=== PATIENT | female | born 1970 | race Caucasian/White ===

== ENCOUNTER 2016-06-16 22:15 | Emergency (ER) | payer SELFPAY ==
[~2016-06-16] VITALS: Ht 157.5 cm; Wt 66.0 kg
[~2016-06-16 22:15] MED LIST: ACETTAB3 OR; ALBUTEROL S2.5 MG/.5 IN; AMOXIL500 MG OR; ANTIVERT25 MG OR; ANUSOL-HC2.5 % RE; ANUSOL-HC25 MG RE; ATENOLOL50 MG PO; ATIVAN0.5 MG OR; ATIVAN1 M1 OR; ATIVAN1 MG PO; BACTRIM DS1 TAB PO; BENTYL20 MG OR; BUTALBITAL/ACETAMIN1 PO; CARAFATE1 GM OR; CEPHALEXIN500 MG OR; CIPRO500 MG OR; CIPROFLOXACN500 MG PO; CITALOPRAM10 MG PO; CITALOPRAM20 MG PO; FLEET RE; FLEXERIL OR; FLEXERIL PO; FLEXERIL5 MG PO; GABAPENTIN300 MG PO; GABAPENTIN600 MG PO; HALDOL0.5 MG/TAB PO; HYDROCHLORO25 MG/TAB PO; HYDROCHLOROT12.5 MG PO; HYDROCHLOROT25 MG PO; KLONOPIN0.5 MG OR; LEVAQUIN500 MG PO; LISINOP/HCTZ1 TA1 PO; LISINOPRIL/HYDR1 TA1 PO; LISINOPRIL10 MG PO; LISINOPRIL5 MG OR; LORTAB 10 PO; LORTAB 10-325 M1 TAB PO; LORTAB 5 OR; MEDDOSEPAK OR; MELOXICAM15 MG PO; METOCLOPRAM10 MG OR; MIRTAZAPINE15 MG PO; MOTRIN800 MG OR; NAPROSYN375 MG PO; NAPROSYN500 MG OR; NEXIUM40 M1 PO; NORCO1 TA2 PO; PAXIL10 MG; PAXIL20 MG OR; PAXIL30 MG PO; PERCOCET 5/325M1 TAB PO; PREDNISONE20 MG OR; PREVACID30 M2 OR; REGLAN10 MG OR; RELACOR; TENORMIN25 MG OR; TOPROL XL25 M1 OR; TRAMADOL HCL50 MG PO; TRILEPTAL150 M1 OR; TRILEPTAL150 M1 PO; TRILEPTAL150 MG OR; ULTRAM50 M1 PO; ULTRAM50 MG OR; VISTARIL25 MG PO; WELLBUTRIN150 M1 PO; XANAX1 MG OR; ZITHROMAX250 MG OR
[2016-06-16 22:25] VITALS: BP 137/78
[2016-06-16] MEDS ORDERED: ATENOLOL50 MG PO (22:31)
== END 2016-06-16 23:45 | disposition left against medical advice (07) | DRG 951 ==
LOC: ED 22:15 → LWOBS 23:45
DX: Z91.19 Patient's noncompliance with other medical treatment and regimen (principal)

== ENCOUNTER 2016-06-25 09:12 | Emergency (ER) | payer SELFPAY ==
[~2016-06-25] VITALS: Ht 157.5 cm; Wt 65.0 kg
[2016-06-25] MEDS ORDERED: VALIUM5 MG PO (09:28)
[2016-06-25 10:23] LABS: URINE BILIRUBIN - DIPSTICK NEGATIVE (NEGATIVE); URINE BLOOD DIPSTICK NEGATIVE (NEGATIVE); URINE CLARITY CLEAR; URINE COLOR YELLOW; URINE GLUCOSE - DIPSTICK NEGATIVE (NEGATIVE); URINE KETONE NEGATIVE (NEGATIVE); URINE LEUK ESTERASE NEGATIVE (NEGATIVE); URINE NITRITE - DIPSTICK NEGATIVE (Negative); URINE PROTEIN - DIPSTICK NEGATIVE (NEG-TRACE); URINE SPECIFIC GRAVITY <=1.005; URINE UROBILINOGEN - DIPSTICK 0.2 E.U./dL (0.2)
[2016-06-25 10:27] LABS: HEMATOCRIT 40.5 % (37.0-47.0); HEMOGLOBIN 14.3 g/dl (12.0-16.0); IMMATURE GRANULOCYTES 0.3 % (0.0-1.0); MEAN CELL VOLUME 90.2 fL CALC (80.0-100.0); MEAN CORPUSCULAR HGB 31.8 pG CALC (26.0-32.0); MEAN CORPUSCULAR HGB CONC 35.3 g/L CALC (32.0-36.0); NEUT# 6.49 thou/uL (2.00-7.15); RED BLOOD COUNT 4.49 mill/uL (4.20-5.60); RED CELL DISTRI WIDTH 12.5 % (11.5-15.5)
[2016-06-25 10:46] LABS: ALBUMIN 4.2 g/dL (3.2-5.0); ALKALINE PHOSPHATASE 52 u/l (38-126); AMYLASE 67 u/l (30-110); ANION GAP 11 (6-22 (CALC)); BILIRUBIN, TOTAL 0.5 mg/dL (0.0-1.4); BUN 6 mg/dL (7-17); BUN/CREATININE RATIO 9 (12-20 (CALC)); CALCIUM 9.4 mg/dL (8.4-10.2); CARBON DIOXIDE 26 mmol/l (22-30); CHLORIDE 105 mmol/l (95-108); CREATININE 0.7 mg/dL (0.5-1.0); GFR > 60 ML/MIN (>=60 (CALC)); GFR FOR AFR.AMER. > 60 ML/MIN (>=60 (CALC)); GLUCOSE 96 mg/dL (65-105); LIPASE 27 u/l (23-300); POTASSIUM 3.8 mmol/l (3.5-5.1); SGOT/AST 18 u/l (14-36); SGPT/ALT 33 u/l (9-52); SODIUM 138 mmol/l (137-146); TOTAL PROTEIN 6.9 g/dL (6.3-8.2)
[2016-06-25 10:57] LABS: MYOGLOBIN 21 ng/mL (0 - 62)
[2016-06-25 12:33] VITALS: BP 139/59
== END 2016-06-25 12:41 | disposition home or self-care (01) | DRG 392 ==
LOC: ED 09:12
PROVIDERS: Emergency Medicine
DX: R10.12 Left upper quadrant pain (principal); I10 Essential (primary) hypertension; R19.7 Diarrhea, unspecified; K44.9 Diaphragmatic hernia without obstruction or gangrene; F41.9 Anxiety disorder, unspecified; F17.210 Nicotine dependence, cigarettes, uncomplicated
CPT/HCPCS: Q9967

== ENCOUNTER 2016-07-18 07:11 | Day surgery (SDC) | payer OTHER ==
[~2016-07-18] VITALS: Ht 157.5 cm; Wt 63.0 kg
[~2016-07-18 07:11] MED LIST changes: +VALIUM5 MG PO; +VIIBRYD20 MG PO
[2016-07-18 08:16] VITALS: BP 125/65
== END 2016-07-18 08:42 | disposition home or self-care (01) | DRG 552 ==
LOC: ORM 07:11
PROVIDERS: ATTEND Anesthesiology Pain Medicine
PROC: 3E0T3BZ Introduction of Anesthetic Agent into Peripheral Nerves and Plexi, Percutaneous Approach (ICD-10-PCS; principal; 2016-07-18)
PROC: 3E0T33Z Introduction of Anti-inflammatory into Peripheral Nerves and Plexi, Percutaneous Approach (ICD-10-PCS; 2016-07-18)
PROC: 3E0T3BZ Introduction of Anesthetic Agent into Peripheral Nerves and Plexi, Percutaneous Approach (ICD-10-PCS; 2016-07-18)
PROC: 3E0T33Z Introduction of Anti-inflammatory into Peripheral Nerves and Plexi, Percutaneous Approach (ICD-10-PCS; 2016-07-18)
DX: M54.5 Low back pain (principal)

== ENCOUNTER 2016-07-25 17:13 | Emergency (ER) | payer OTHER ==
[~2016-07-25] VITALS: Ht 157.5 cm; Wt 64.2 kg
[2016-07-25] MEDS ORDERED: LISINOPRIL/HYDR1 TA1 PO (17:27)
[2016-07-25 18:23] VITALS: BP 135/80
== END 2016-07-25 18:35 | disposition home or self-care (01) | DRG 93 ==
LOC: ED 17:13
DX: G89.29 Other chronic pain (principal); M54.2 Cervicalgia; M54.5 Low back pain

== ENCOUNTER 2016-08-29 05:53 | Day surgery (SDC) | payer MEDICARE ==
[~2016-08-29] VITALS: Ht 157.5 cm; Wt 63.5 kg
[~2016-08-29 05:53] MED LIST changes: +PERCOCET1 TA4 PO
[2016-08-29 07:29] VITALS: BP 124/62
== END 2016-08-29 08:00 | disposition home or self-care (01) ==
LOC: ORM 05:53
PROVIDERS: ATTEND Anesthesiology Pain Medicine
PROC: 3E0U33Z Introduction of Anti-inflammatory into Joints, Percutaneous Approach (ICD-10-PCS; principal; 2016-08-29)
PROC: 3E0U3BZ Introduction of Anesthetic Agent into Joints, Percutaneous Approach (ICD-10-PCS; 2016-08-29)
DX: M25.551 Pain in right hip (principal); M76.61 Achilles tendinitis, right leg; M76.31 Iliotibial band syndrome, right leg; Z72.0 Tobacco use

== ENCOUNTER 2016-08-31 06:56 | Day surgery (SDC) | payer MEDICARE ==
[~2016-08-31] VITALS: Ht 157.5 cm; Wt 63.5 kg
[2016-08-31 10:23] VITALS: BP 136/66
== END 2016-08-31 10:30 | disposition home or self-care (01) ==
LOC: ORM 06:56 → ENDO 06:56 → ORM 09:55
PROVIDERS: ATTEND Internal Medicine Gastroenterology
PROC: 0DBG8ZX Excision of Left Large Intestine, Via Natural or Artificial Opening Endoscopic, Diagnostic (ICD-10-PCS; principal; 2016-08-31)
PROC: 0DBF8ZX Excision of Right Large Intestine, Via Natural or Artificial Opening Endoscopic, Diagnostic (ICD-10-PCS; 2016-08-31)
DX: R19.7 Diarrhea, unspecified (principal); K62.5 Hemorrhage of anus and rectum; R10.84 Generalized abdominal pain; K21.9 Gastro-esophageal reflux disease without esophagitis; R63.4 Abnormal weight loss; K64.4 Residual hemorrhoidal skin tags; K64.8 Other hemorrhoids; K57.30 Diverticulosis of large intestine without perforation or abscess without bleeding; K63.5 Polyp of colon; F32.9 Major depressive disorder, single episode, unspecified; I10 Essential (primary) hypertension; M19.90 Unspecified osteoarthritis, unspecified site; Z80.0 Family history of malignant neoplasm of digestive organs; Z86.010 Personal history of colon polyps

== ENCOUNTER 2016-09-10 11:05 | Emergency (ER) | payer MEDICARE ==
[~2016-09-10] VITALS: Ht 157.5 cm; Wt 63.1 kg
[2016-09-10 12:44] VITALS: BP 137/79
== END 2016-09-10 12:44 | disposition home or self-care (01) ==
LOC: ED 11:05
DX: G89.29 Other chronic pain (principal); M54.5 Low back pain; M54.2 Cervicalgia; I10 Essential (primary) hypertension; M25.78 Osteophyte, vertebrae; F41.9 Anxiety disorder, unspecified; F17.210 Nicotine dependence, cigarettes, uncomplicated

== ENCOUNTER 2016-09-12 05:55 | Day surgery (SDC) | payer MEDICARE ==
[~2016-09-12] VITALS: Ht 157.5 cm; Wt 63.0 kg
[2016-09-12 07:31] VITALS: BP 122/76
[2016-09-12] MEDS ORDERED: PERCOCET1 TA4 PO (08:02)
== END 2016-09-12 08:23 | disposition home or self-care (01) ==
LOC: ORM 05:55
PROVIDERS: ATTEND Anesthesiology Pain Medicine
PROC: 3E0U33Z Introduction of Anti-inflammatory into Joints, Percutaneous Approach (ICD-10-PCS; principal; 2016-09-12)
PROC: 3E0U3BZ Introduction of Anesthetic Agent into Joints, Percutaneous Approach (ICD-10-PCS; 2016-09-12)
DX: M25.551 Pain in right hip (principal); M70.61 Trochanteric bursitis, right hip; M76.31 Iliotibial band syndrome, right leg

== ENCOUNTER 2016-09-26 05:53 | Day surgery (SDC) | payer MEDICARE ==
[~2016-09-26] VITALS: Ht 157.5 cm; Wt 62.6 kg
[2016-09-26 07:41] VITALS: BP 141/68
[2016-09-26] MEDS ORDERED: FLEXERIL5 M1 PO (20:31)
[2016-09-26] MEDS ORDERED: HYDROCO/APAP1 T13 PO (20:32)
[2016-09-26] MEDS ORDERED: CIPROFLOXACN500 MG PO (22:10)
== END 2016-09-26 08:05 | disposition home or self-care (01) ==
LOC: ORM 05:53
PROVIDERS: ATTEND Anesthesiology Pain Medicine
PROC: 3E0T33Z Introduction of Anti-inflammatory into Peripheral Nerves and Plexi, Percutaneous Approach (ICD-10-PCS; principal; 2016-09-26)
PROC: 3E0T3BZ Introduction of Anesthetic Agent into Peripheral Nerves and Plexi, Percutaneous Approach (ICD-10-PCS; 2016-09-26)
PROC: 3E0T33Z Introduction of Anti-inflammatory into Peripheral Nerves and Plexi, Percutaneous Approach (ICD-10-PCS; 2016-09-26)
PROC: 3E0T3BZ Introduction of Anesthetic Agent into Peripheral Nerves and Plexi, Percutaneous Approach (ICD-10-PCS; 2016-09-26)
DX: M54.5 Low back pain (principal); M25.551 Pain in right hip

== ENCOUNTER 2016-09-26 20:04 | Emergency (ER) | payer MEDICARE ==
[~2016-09-26] VITALS: Ht 157.5 cm; Wt 60.0 kg
[2016-09-26] MEDS ORDERED: FLEXERIL5 M1 PO (20:31)
[2016-09-26] MEDS ORDERED: HYDROCO/APAP1 T13 PO (20:32)
[2016-09-26 20:50] LABS: HEMATOCRIT 39.1 % (37.0-47.0); HEMOGLOBIN 13.7 g/dl (12.0-16.0); IMMATURE GRANULOCYTES 0.5 % (0.0-1.0); MEAN CELL VOLUME 91.8 fL CALC (80.0-100.0); MEAN CORPUSCULAR HGB 32.2 pG CALC (26.0-32.0); NEUT# 15.26 thou/uL (2.00-7.15); RED BLOOD COUNT 4.26 mill/uL (4.20-5.60)
[2016-09-26 21:08] LABS: ALBUMIN 4.1 g/dL (3.2-5.0); ALKALINE PHOSPHATASE 43 u/l (38-126); ANION GAP 15 (6-22 (CALC)); BILIRUBIN, TOTAL 0.4 mg/dL (0.0-1.4); BUN 11 mg/dL (7-17); BUN/CREATININE RATIO 17 (12-20 (CALC)); CALCIUM 9.7 mg/dL (8.4-10.2); CARBON DIOXIDE 21 mmol/l (22-30); CHLORIDE 106 mmol/l (95-108); CREATININE 0.6 mg/dL (0.5-1.0); GFR > 60 ML/MIN (>=60 (CALC)); GFR FOR AFR.AMER. > 60 ML/MIN (>=60 (CALC)); GLUCOSE 135 mg/dL (65-105); POTASSIUM 4.3 mmol/l (3.5-5.1); SGOT/AST 20 u/l (14-36); SGPT/ALT 37 u/l (9-52); SODIUM 137 mmol/l (137-146); TOTAL PROTEIN 6.4 g/dL (6.3-8.2)
[2016-09-26 21:31] LABS: URINE BILIRUBIN - DIPSTICK NEGATIVE (NEGATIVE); URINE BLOOD DIPSTICK TRACE-LYSED (NEGATIVE); URINE CLARITY CLEAR; URINE COLOR YELLOW; URINE GLUCOSE - DIPSTICK 250 mg/dL (NEGATIVE); URINE KETONE NEGATIVE (NEGATIVE); URINE LEUK ESTERASE NEGATIVE (NEGATIVE); URINE NITRITE - DIPSTICK NEGATIVE (Negative); URINE PROTEIN - DIPSTICK NEGATIVE (NEG-TRACE); URINE SPECIFIC GRAVITY 1.025; URINE UROBILINOGEN - DIPSTICK 0.2 E.U./dL (0.2)
[2016-09-26 21:34] LABS: COCAINE NEGATIVE (NEGATIVE); METHADONE NEGATIVE (NEGATIVE); TETRAHYDROCANNABIONOL NEGATIVE (NEGATIVE)
[2016-09-26 21:35] LABS: BARBITURATES NEGATIVE (NEGATIVE); OXCYCODONE NEGATIVE (NEGATIVE); TRICYLIC ANTIDEPRESSANTS NEGATIVE (NEGATIVE)
[2016-09-26 21:48] LABS: INFLUENZA A NONE DETECTED (NONE DETECT); INFLUENZA B NONE DETECTED (NONE DETECT)
[2016-09-26] MEDS ORDERED: CIPROFLOXACN500 MG PO (22:10)
[2016-09-26 22:16] VITALS: BP 115/58
== END 2016-09-26 22:45 | disposition home or self-care (01) ==
LOC: ED 20:04
PROVIDERS: Emergency Medicine
DX: R51 Headache (principal); F41.9 Anxiety disorder, unspecified; D72.829 Elevated white blood cell count, unspecified; I10 Essential (primary) hypertension; K44.9 Diaphragmatic hernia without obstruction or gangrene; M50.323 Other cervical disc degeneration at C6-C7 level; F17.210 Nicotine dependence, cigarettes, uncomplicated

== ENCOUNTER 2016-10-17 05:50 | Day surgery (SDC) | payer MEDICARE ==
[~2016-10-17] VITALS: Ht 157.5 cm; Wt 63.0 kg
[~2016-10-17 05:50] MED LIST changes: +FLEXERIL5 M1 PO; +HYDROCO/APAP1 T13 PO; +KLONOPIN0.5 M1; +PROZAC20 M1 PO
[2016-10-17 08:59] VITALS: BP 138/62
== END 2016-10-17 08:18 | disposition home or self-care (01) ==
LOC: ORM 05:50
PROVIDERS: ATTEND Anesthesiology Pain Medicine
PROC: 3E0T3TZ Introduction of Destructive Agent into Peripheral Nerves and Plexi, Percutaneous Approach (ICD-10-PCS; principal; 2016-10-17)
DX: M54.5 Low back pain (principal); R20.2 Paresthesia of skin

== ENCOUNTER 2016-10-31 05:55 | Day surgery (SDC) | payer MEDICARE ==
[~2016-10-31] VITALS: Ht 157.5 cm; Wt 63.0 kg
[2016-10-31 10:33] VITALS: BP 168/87
== END 2016-10-31 08:25 | disposition home or self-care (01) ==
LOC: ORM 05:55
PROVIDERS: ATTEND Anesthesiology Pain Medicine
PROC: 3E0T3TZ Introduction of Destructive Agent into Peripheral Nerves and Plexi, Percutaneous Approach (ICD-10-PCS; principal; 2016-10-31)
DX: M54.5 Low back pain (principal); M47.816 Spondylosis without myelopathy or radiculopathy, lumbar region

== ENCOUNTER 2016-11-26 10:11 | Emergency (ER) | payer MEDICARE ==
[~2016-11-26] VITALS: Ht 157.5 cm; Wt 62.0 kg
[~2016-11-26 10:11] MED LIST changes: +DICLOFENAC100 M1 PO
[2016-11-26 10:52] LABS: HEMATOCRIT 37.2 % (37.0-47.0); HEMOGLOBIN 13.2 g/dl (12.0-16.0); IMMATURE GRANULOCYTES 0.3 % (0.0-1.0); MEAN CELL VOLUME 90.5 fL CALC (80.0-100.0); MEAN CORPUSCULAR HGB 32.1 pG CALC (26.0-32.0); MEAN CORPUSCULAR HGB CONC 35.5 g/L CALC (32.0-36.0); NEUT# 4.51 thou/uL (2.00-7.15); RED BLOOD COUNT 4.11 mill/uL (4.20-5.60); RED CELL DISTRI WIDTH 12.5 % (11.5-15.5)
[2016-11-26 11:08] LABS: ALKALINE PHOSPHATASE 47 u/l (38-126); ANION GAP 13 (6-22 (CALC)); BILIRUBIN, TOTAL 0.5 mg/dL (0.0-1.4); BUN 7 mg/dL (7-17); BUN/CREATININE RATIO 11 (12-20 (CALC)); CALCIUM 9.7 mg/dL (8.4-10.2); CARBON DIOXIDE 28 mmol/l (22-30); CHLORIDE 95 mmol/l (95-108); CREATININE 0.7 mg/dL (0.5-1.0); GFR > 60 ML/MIN (>=60 (CALC)); GFR FOR AFR.AMER. > 60 ML/MIN (>=60 (CALC)); GLUCOSE 85 mg/dL (65-105); LIPASE 29 u/l (23-300); POTASSIUM 3.9 mmol/l (3.5-5.1); SGOT/AST 22 u/l (14-36); SGPT/ALT 39 u/l (9-52); SODIUM 132 mmol/l (137-146); TOTAL PROTEIN 6.4 g/dL (6.3-8.2)
[2016-11-26 11:12] LABS: URINE BILIRUBIN - DIPSTICK NEGATIVE (NEGATIVE); URINE BLOOD DIPSTICK NEGATIVE (NEGATIVE); URINE CLARITY CLEAR; URINE COLOR YELLOW; URINE GLUCOSE - DIPSTICK NEGATIVE (NEGATIVE); URINE KETONE NEGATIVE (NEGATIVE); URINE LEUK ESTERASE NEGATIVE (NEGATIVE); URINE NITRITE - DIPSTICK NEGATIVE (Negative); URINE PROTEIN - DIPSTICK NEGATIVE (NEG-TRACE); URINE UROBILINOGEN - DIPSTICK 0.2 E.U./dL (0.2)
[2016-11-26 13:36] VITALS: BP 151/71
== END 2016-11-26 13:47 | disposition home or self-care (01) ==
LOC: ED 10:11
PROVIDERS: Family Medicine
DX: R19.7 Diarrhea, unspecified (principal); I10 Essential (primary) hypertension; F41.9 Anxiety disorder, unspecified; K57.30 Diverticulosis of large intestine without perforation or abscess without bleeding; F17.210 Nicotine dependence, cigarettes, uncomplicated

== ENCOUNTER 2017-02-03 10:35 | Emergency (ER) | payer MEDICARE ==
[~2017-02-03] VITALS: Ht 157.5 cm; Wt 64.0 kg
[~2017-02-03 10:35] MED LIST changes: +DICLOFENAC75 MG PO; +FENTANYL50 MCG/HR TD
[2017-02-03 10:38] VITALS: BP 135/72
[2017-02-03] MEDS ORDERED: AUGMENTIN875TAB PO (11:24)
[2017-02-03] MEDS ORDERED: ZPAK PO (11:24)
== END 2017-02-03 11:53 | disposition home or self-care (01) ==
LOC: ED 10:35
DX: J32.0 Chronic maxillary sinusitis (principal); R05 Cough; R51 Headache; R09.81 Nasal congestion; F17.210 Nicotine dependence, cigarettes, uncomplicated

== ENCOUNTER 2017-05-13 01:51 | Emergency (ER) | payer MEDICARE ==
[~2017-05-13] VITALS: Ht 157.5 cm; Wt 65.6 kg
[~2017-05-13 01:51] MED LIST changes: +AUGMENTIN875TAB PO; +FENTANYL25 MCG/HR TD; +METOPROLOL50 M1 PO; +ZPAK PO
[2017-05-13 03:25] VITALS: BP 138/72
== END 2017-05-13 03:26 | disposition home or self-care (01) ==
LOC: ED 01:51
DX: S39.012A Strain of muscle, fascia and tendon of lower back, initial encounter (principal); I10 Essential (primary) hypertension; F17.210 Nicotine dependence, cigarettes, uncomplicated; X58.XXXA Exposure to other specified factors, initial encounter

== ENCOUNTER 2017-11-07 07:51 | Emergency (ER) | payer MEDICARE ==
[~2017-11-07] VITALS: Ht 160 cm; Wt 70.5 kg
[2017-11-07 08:34] LABS: HEMATOCRIT 37.9 % (37.0-47.0); HEMOGLOBIN 13.3 g/dl (12.0-16.0); IMMATURE GRANULOCYTES 0.5 % (0.0-5.0); MEAN CELL VOLUME 90.2 fL CALC (80.0-100.0); MEAN CORPUSCULAR HGB 31.7 pG CALC (26.0-32.0); MEAN CORPUSCULAR HGB CONC 35.1 g/L CALC (32.0-36.0); NEUT# 13.68 thou/uL (2.00-7.15); RED BLOOD COUNT 4.2 mill/uL (4.20-5.60); RED CELL DISTRI WIDTH 13.3 % (11.5-15.5)
[2017-11-07 08:36] LABS: URINE BILIRUBIN - DIPSTICK NEGATIVE (NEGATIVE); URINE BLOOD DIPSTICK NEGATIVE (NEGATIVE); URINE COLOR YELLOW; URINE GLUCOSE - DIPSTICK NEGATIVE (NEGATIVE); URINE KETONE NEGATIVE (NEGATIVE); URINE LEUK ESTERASE NEGATIVE (NEGATIVE); URINE NITRITE - DIPSTICK NEGATIVE (Negative); URINE PROTEIN - DIPSTICK NEGATIVE (NEG-TRACE); URINE UROBILINOGEN - DIPSTICK 0.2 E.U./dL (0.2)
[2017-11-07 08:37] LABS: URINE CLARITY CLEAR
[2017-11-07 08:49] LABS: ALKALINE PHOSPHATASE 51 u/l (38-126); ANION GAP 12 (6-22 (CALC)); BILIRUBIN, TOTAL 0.4 mg/dL (0.0-1.4); BUN 10 mg/dL (7-17); BUN/CREATININE RATIO 16 (12-20 (CALC)); CARBON DIOXIDE 27 mmol/l (22-30); CHLORIDE 102 mmol/l (95-108); CREATININE 0.6 mg/dL (0.5-1.0); GFR > 60 ML/MIN (>=60 (CALC)); GFR FOR AFR.AMER. > 60 ML/MIN (>=60 (CALC)); POTASSIUM 3.7 mmol/l (3.5-5.1); SGOT/AST 21 u/l (14-36); SGPT/ALT 36 u/l (9-52); SODIUM 138 mmol/l (137-146); TOTAL PROTEIN 6.5 g/dL (6.3-8.2)
[2017-11-07] MEDS ORDERED: ZOFRAN ODT4 MG PO (09:42)
[2017-11-07] MEDS ORDERED: METRONIDAZOL500 MG PO (09:42)
[2017-11-07] MEDS ORDERED: CIPROFLOXACN500 MG PO (09:42)
[2017-11-07 10:07] VITALS: BP 143/75
== END 2017-11-07 10:07 | disposition left against medical advice (07) ==
LOC: ED 07:51
PROVIDERS: Emergency Medicine
DX: R19.7 Diarrhea, unspecified (principal); R10.33 Periumbilical pain; M19.90 Unspecified osteoarthritis, unspecified site; I10 Essential (primary) hypertension; K58.9 Irritable bowel syndrome, unspecified; K57.90 Diverticulosis of intestine, part unspecified, without perforation or abscess without bleeding; K44.9 Diaphragmatic hernia without obstruction or gangrene; F17.210 Nicotine dependence, cigarettes, uncomplicated; Z91.19 Patient's noncompliance with other medical treatment and regimen

== ENCOUNTER → 2017-12-27 | Outpatient (REF) | payer MEDICARE ==
[~2017-12-27] MED LIST changes: +METRONIDAZOL500 MG PO; +ZOFRAN ODT4 MG PO
== END | disposition home or self-care (01) ==
LOC: MRI 10:59
PROVIDERS: ATTEND Orthopaedic Surgery Orthopaedic Surgery of the Spine
DX: M54.5 Low back pain (principal); M54.16 Radiculopathy, lumbar region; Z47.89 Encounter for other orthopedic aftercare

== ENCOUNTER → 2018-05-14 | Outpatient (REF) | payer MEDICARE ==
[2018-05-14 10:20] LABS: HEMATOCRIT 39.4 % (37.0-47.0); HEMOGLOBIN 13.2 g/dl (12.0-16.0); IMMATURE GRANULOCYTES 0.3 % (0.0-5.0); MEAN CORPUSCULAR HGB 32.1 pG CALC (26.0-32.0); MEAN CORPUSCULAR HGB CONC 33.5 g/L CALC (32.0-36.0); NEUT# 5.88 thou/uL (2.00-7.15); RED BLOOD COUNT 4.11 mill/uL (4.20-5.60); RED CELL DISTRI WIDTH 13.5 % (11.5-15.5)
[2018-05-14 10:22] LABS: MEAN CELL VOLUME 95.9 fL CALC (80.0-100.0)
[2018-05-14 11:10] LABS: C-REACTIVE PROTEIN 0.6 mg/dL (0-0.9)
== END | disposition home or self-care (01) ==
LOC: LAB 09:35
PROVIDERS: ATTEND Orthopaedic Surgery Orthopaedic Surgery of the Spine
DX: M06.9 Rheumatoid arthritis, unspecified (principal)

== ENCOUNTER 2018-07-06 20:29 | Emergency (ER) | payer MEDICARE ==
[~2018-07-06] VITALS: Ht 7.6 cm; Wt 65.0 kg
[2018-07-06] MEDS ORDERED: HYDROCHLOROT25 MG PO (20:44)
[2018-07-06] MEDS ORDERED: NORCO1 TA1 PO (20:46)
[2018-07-06 21:23] LABS: URINE BILIRUBIN - DIPSTICK NEGATIVE (NEGATIVE); URINE BLOOD DIPSTICK NEGATIVE (NEGATIVE); URINE COLOR YELLOW; URINE GLUCOSE - DIPSTICK NEGATIVE (NEGATIVE); URINE KETONE NEGATIVE (NEGATIVE); URINE LEUK ESTERASE NEGATIVE (NEGATIVE); URINE NITRITE - DIPSTICK NEGATIVE (Negative); URINE PH 5.5 (4.5-8.0); URINE PROTEIN - DIPSTICK NEGATIVE (NEG-TRACE); URINE SPECIFIC GRAVITY 1.025; URINE UROBILINOGEN - DIPSTICK 0.2 E.U./dL (0.2)
[2018-07-06 21:25] LABS: HEMATOCRIT 39.2 % (37.0-47.0); HEMOGLOBIN 13.3 g/dl (12.0-16.0); IMMATURE GRANULOCYTES 0.2 % (0.0-5.0); MEAN CELL VOLUME 93.6 fL CALC (80.0-100.0); MEAN CORPUSCULAR HGB 31.7 pG CALC (26.0-32.0); MEAN CORPUSCULAR HGB CONC 33.9 g/L CALC (32.0-36.0); NEUT# 4.42 thou/uL (2.00-7.15); RED BLOOD COUNT 4.19 mill/uL (4.20-5.60); RED CELL DISTRI WIDTH 12.6 % (11.5-15.5)
[2018-07-06 21:44] LABS: ALBUMIN 4.1 g/dL (3.2-5.0); ALKALINE PHOSPHATASE 58 u/l (38-126); AMYLASE 52 u/l (30-110); ANION GAP 12 (6-22 (CALC)); BILIRUBIN, TOTAL 0.3 mg/dL (0.0-1.4); BUN 20 mg/dL (7-17); BUN/CREATININE RATIO 30 (12-20 (CALC)); CARBON DIOXIDE 27 mmol/l (22-30); CHLORIDE 102 mmol/l (95-108); CREATININE 0.6 mg/dL (0.5-1.0); GFR > 60 ML/MIN (>=60 (CALC)); GFR FOR AFR.AMER. > 60 ML/MIN (>=60 (CALC)); LIPASE 58 u/l (23-300); POTASSIUM 3.7 mmol/l (3.5-5.1); SGOT/AST 19 u/l (14-36); SODIUM 137 mmol/l (137-146); TOTAL PROTEIN 6.3 g/dL (6.3-8.2)
[2018-07-06] MEDS ORDERED: AMITRIPTYLIN25 MG PO (22:38)
[2018-07-06 22:50] VITALS: BP 148/80
== END 2018-07-06 22:50 | disposition home or self-care (01) ==
LOC: ED 20:29
PROVIDERS: Family Medicine
DX: K58.0 Irritable bowel syndrome with diarrhea (principal); I10 Essential (primary) hypertension; F17.210 Nicotine dependence, cigarettes, uncomplicated

== ENCOUNTER 2018-09-07 13:04 | Emergency (ER) | payer MEDICARE ==
[~2018-09-07] VITALS: Ht 160 cm; Wt 65.0 kg
[~2018-09-07 13:04] MED LIST changes: +AMITRIPTYLIN25 MG PO; +NORCO1 TA1 PO
[2018-09-07 13:33] VITALS: BP 148/75
[2018-09-07] MEDS ORDERED: AMOXICILLIN500 MG PO (13:46)
== END 2018-09-07 14:02 | disposition home or self-care (01) ==
LOC: ED 13:04
PROC: 0HQEXZZ Repair Left Lower Arm Skin, External Approach (ICD-10-PCS; principal; 2018-09-07)
DX: S51.822A Laceration with foreign body of left forearm, initial encounter (principal); I10 Essential (primary) hypertension; F17.200 Nicotine dependence, unspecified, uncomplicated; W45.8XXA Other foreign body or object entering through skin, initial encounter; W22.8XXA Striking against or struck by other objects, initial encounter

== ENCOUNTER 2018-09-26 21:53 | Emergency (ER) | payer MEDICARE ==
[~2018-09-26] VITALS: Ht 160 cm; Wt 62.7 kg
[~2018-09-26 21:53] MED LIST changes: +AMOXICILLIN500 MG PO
[2018-09-26] MEDS ORDERED: DILAUDID4 MG PO (22:22)
[2018-09-26] MEDS ORDERED: GABAPENTIN100 MG PO (22:23)
[2018-09-26] MEDS ORDERED: DULOXETINE HCL30 MG PO (22:24)
[2018-09-26] MEDS ORDERED: NEXIUM40 M1 PO (22:24)
[2018-09-26 22:32] LABS: URINE BILIRUBIN - DIPSTICK NEGATIVE (NEGATIVE); URINE BLOOD DIPSTICK NEGATIVE (NEGATIVE); URINE COLOR YELLOW; URINE GLUCOSE - DIPSTICK NEGATIVE (NEGATIVE); URINE KETONE NEGATIVE (NEGATIVE); URINE LEUK ESTERASE NEGATIVE (NEGATIVE); URINE NITRITE - DIPSTICK NEGATIVE (Negative); URINE PROTEIN - DIPSTICK NEGATIVE (NEG-TRACE); URINE SPECIFIC GRAVITY 1.025; URINE UROBILINOGEN - DIPSTICK 0.2 E.U./dL (0.2)
[2018-09-26 22:36] LABS: COCAINE NEGATIVE (NEGATIVE); TETRAHYDROCANNABIONOL NEGATIVE (NEGATIVE)
[2018-09-26 22:37] LABS: BARBITURATES NEGATIVE (NEGATIVE); METHADONE NEGATIVE (NEGATIVE); OXCYCODONE NEGATIVE (NEGATIVE); TRICYLIC ANTIDEPRESSANTS NEGATIVE (NEGATIVE)
[2018-09-26] MEDS ORDERED: FLEXERIL PO (23:34)
[2018-09-26 23:40] VITALS: BP 144/76
== END 2018-09-26 23:40 | disposition home or self-care (01) ==
LOC: ED 21:53
PROVIDERS: Family Medicine
DX: S00.03XA Contusion of scalp, initial encounter (principal); S30.0XXA Contusion of lower back and pelvis, initial encounter; S33.5XXA Sprain of ligaments of lumbar spine, initial encounter; S20.222A Contusion of left back wall of thorax, initial encounter; I10 Essential (primary) hypertension; F17.200 Nicotine dependence, unspecified, uncomplicated; V80.010A Animal-rider injured by fall from or being thrown from horse in noncollision accident, initial encounter; Y93.52 Activity, horseback riding; Y92.009 Unspecified place in unspecified non-institutional (private) residence as the place of occurrence of the external cause

== ENCOUNTER 2018-10-08 12:36 | Emergency (ER) | payer OTHER, MEDICARE ==
[~2018-10-08] VITALS: Ht 160 cm; Wt 62.7 kg
[~2018-10-08 12:36] MED LIST changes: +DILAUDID4 MG PO; +DULOXETINE HCL30 MG PO; +GABAPENTIN100 MG PO
[2018-10-08 13:56] LABS: URINE BILIRUBIN - DIPSTICK NEGATIVE (NEGATIVE); URINE BLOOD DIPSTICK NEGATIVE (NEGATIVE); URINE CLARITY CLEAR; URINE COLOR YELLOW; URINE GLUCOSE - DIPSTICK NEGATIVE (NEGATIVE); URINE KETONE NEGATIVE (NEGATIVE); URINE LEUK ESTERASE NEGATIVE (Negative); URINE NITRITE - DIPSTICK NEGATIVE (Negative); URINE PH 5.5 (4.5-8.0); URINE PROTEIN - DIPSTICK NEGATIVE (NEG-TRACE); URINE UROBILINOGEN - DIPSTICK 0.2 E.U./dL (0.2)
[2018-10-08] MEDS ORDERED: FLEXERIL PO (14:08)
[2018-10-08] MEDS ORDERED: MEDDOSEPAK PO (14:08)
[2018-10-08] MEDS ORDERED: DULCOLAX10 MG RE (14:11)
[2018-10-08 14:32] VITALS: BP 128/61
== END 2018-10-08 14:32 | disposition home or self-care (01) | DRG 552 ==
LOC: ED 12:36
PROVIDERS: Emergency Medicine
DX: M54.5 Low back pain (principal); G89.29 Other chronic pain; K56.41 Fecal impaction; R10.12 Left upper quadrant pain; M79.604 Pain in right leg; F17.210 Nicotine dependence, cigarettes, uncomplicated; V54.5XXA Driver of pick-up truck or van injured in collision with heavy transport vehicle or bus in traffic accident, initial encounter; Y92.411 Interstate highway as the place of occurrence of the external cause

== ENCOUNTER 2019-01-02 07:20 | Emergency (ER) | payer MEDICARE ==
[~2019-01-02] VITALS: Ht 160 cm; Wt 65.0 kg
[~2019-01-02 07:20] MED LIST changes: +DULCOLAX10 MG RE; +MEDDOSEPAK PO
[2019-01-02] MEDS ORDERED: MORPHINE SUL15 MG PO (07:29)
[2019-01-02 08:07] LABS: HEMATOCRIT 43.6 % (37.0-47.0); HEMOGLOBIN 14.5 g/dl (12.0-16.0); IMMATURE GRANULOCYTES 0.2 % (0.0-5.0); MEAN CELL VOLUME 89.5 fL CALC (80.0-100.0); MEAN CORPUSCULAR HGB 29.8 pG CALC (26.0-32.0); MEAN CORPUSCULAR HGB CONC 33.3 g/L CALC (32.0-36.0); NEUT# 6.12 thou/uL (2.00-7.15); RED BLOOD COUNT 4.87 mill/uL (4.20-5.60); RED CELL DISTRI WIDTH 14.5 % (11.5-15.5)
[2019-01-02 08:22] LABS: ALKALINE PHOSPHATASE 66 u/l (38-126); ANION GAP 10 (6-22 (CALC)); BILIRUBIN, TOTAL 0.3 mg/dL (0.0-1.4); BUN 11 mg/dL (7-17); BUN/CREATININE RATIO 18 (12-20 (CALC)); CARBON DIOXIDE 28 mmol/l (22-30); CHLORIDE 106 mmol/l (95-108); CREATININE 0.6 mg/dL (0.5-1.0); GFR > 60 ML/MIN (>=60 (CALC)); GFR FOR AFR.AMER. > 60 ML/MIN (>=60 (CALC)); LIPASE 82 u/l (23-300); POTASSIUM 3.8 mmol/l (3.5-5.1); SGOT/AST 20 u/l (14-36); SODIUM 140 mmol/l (137-146); TOTAL PROTEIN 6.6 g/dL (6.3-8.2)
[2019-01-02 08:44] LABS: URINE BILIRUBIN - DIPSTICK NEGATIVE (NEGATIVE); URINE BLOOD DIPSTICK NEGATIVE (NEGATIVE); URINE COLOR YELLOW; URINE GLUCOSE - DIPSTICK NEGATIVE (NEGATIVE); URINE KETONE NEGATIVE (NEGATIVE); URINE LEUK ESTERASE NEGATIVE (NEGATIVE); URINE NITRITE - DIPSTICK NEGATIVE (Negative); URINE PROTEIN - DIPSTICK NEGATIVE (NEG-TRACE); URINE UROBILINOGEN - DIPSTICK 0.2 E.U./dL (0.2)
[2019-01-02 08:48] LABS: BARBITURATES NEGATIVE (NEGATIVE); COCAINE NEGATIVE (NEGATIVE); METHADONE NEGATIVE (NEGATIVE); OXCYCODONE NEGATIVE (NEGATIVE); TETRAHYDROCANNABIONOL POSITIVE (NEGATIVE); TRICYLIC ANTIDEPRESSANTS NEGATIVE (NEGATIVE)
[2019-01-02] MEDS ORDERED: CIPROFLOXACN500 MG PO (09:22)
[2019-01-02] MEDS ORDERED: METRONIDAZOL250 MG PO (09:22)
[2019-01-02 10:33] VITALS: BP 145/67
== END 2019-01-02 10:33 | disposition home or self-care (01) ==
LOC: ED 07:20
DX: K57.32 Diverticulitis of large intestine without perforation or abscess without bleeding (principal); I10 Essential (primary) hypertension; F17.210 Nicotine dependence, cigarettes, uncomplicated
CPT/HCPCS: Q9967

== ENCOUNTER 2019-01-12 07:15 | Emergency (ER) | payer MEDICARE ==
[~2019-01-12] VITALS: Ht 160 cm; Wt 70.0 kg
[~2019-01-12 07:15] MED LIST changes: +METRONIDAZOL250 MG PO; +MORPHINE SUL15 MG PO
[2019-01-12 07:50] LABS: HEMATOCRIT 43.9 % (37.0-47.0); HEMOGLOBIN 14.2 g/dl (12.0-16.0); IMMATURE GRANULOCYTES 0.2 % (0.0-5.0); MEAN CELL VOLUME 91.6 fL CALC (80.0-100.0); MEAN CORPUSCULAR HGB 29.6 pG CALC (26.0-32.0); MEAN CORPUSCULAR HGB CONC 32.3 g/L CALC (32.0-36.0); NEUT# 6.58 thou/uL (2.00-7.15); RED BLOOD COUNT 4.79 mill/uL (4.20-5.60); RED CELL DISTRI WIDTH 17.1 % (11.5-15.5)
[2019-01-12 08:38] LABS: ALBUMIN 3.7 g/dL (3.2-5.0); ALKALINE PHOSPHATASE 62 u/l (38-126); ANION GAP 9 (6-22 (CALC)); BILIRUBIN, TOTAL 0.5 mg/dL (0.0-1.4); BUN 10 mg/dL (7-17); BUN/CREATININE RATIO 19 (12-20 (CALC)); CARBON DIOXIDE 26 mmol/l (22-30); CHLORIDE 108 mmol/l (95-108); CREATININE 0.5 mg/dL (0.5-1.0); GFR > 60 ML/MIN (>=60 (CALC)); GFR FOR AFR.AMER. > 60 ML/MIN (>=60 (CALC)); LIPASE 35 u/l (23-300); POTASSIUM 3.8 mmol/l (3.5-5.1); SGOT/AST 23 u/l (14-36); SODIUM 139 mmol/l (137-146); TOTAL PROTEIN 6.2 g/dL (6.3-8.2)
[2019-01-12] MEDS ORDERED: AMOXICILLIN/CL875 MG PO (09:47)
[2019-01-12] MEDS ORDERED: PHENERGAN25 MG/TAB PO (09:47)
[2019-01-12 10:05] LABS: URINE BILIRUBIN - DIPSTICK NEGATIVE (NEGATIVE); URINE BLOOD DIPSTICK NEGATIVE (NEGATIVE); URINE COLOR YELLOW; URINE GLUCOSE - DIPSTICK NEGATIVE (NEGATIVE); URINE KETONE NEGATIVE (NEGATIVE); URINE LEUK ESTERASE NEGATIVE (NEGATIVE); URINE NITRITE - DIPSTICK NEGATIVE (Negative); URINE PROTEIN - DIPSTICK NEGATIVE (NEG-TRACE); URINE SPECIFIC GRAVITY <=1.005; URINE UROBILINOGEN - DIPSTICK 0.2 E.U./dL (0.2)
[2019-01-12 10:19] VITALS: BP 125/65
== END 2019-01-12 10:20 | disposition home or self-care (01) ==
LOC: ED 07:15
PROVIDERS: Family Medicine
DX: K57.32 Diverticulitis of large intestine without perforation or abscess without bleeding (principal); I10 Essential (primary) hypertension; F17.200 Nicotine dependence, unspecified, uncomplicated
CPT/HCPCS: Q9967

== ENCOUNTER 2019-01-14 17:56 | Observation (INO) | payer MEDICARE ==
[~2019-01-14] VITALS: Ht 160 cm; Wt 64.0 kg
[~2019-01-14 17:56] MED LIST changes: +AMOXICILLIN/CL875 MG PO; +PHENERGAN25 MG/TAB PO
--- NOTE | 2019-01-14 18:05 | NUR ---
WHEELCHAIR TO ER ROOM 9, TO BED
[2019-01-14 18:39] LABS: HEMATOCRIT 42.3 % (37.0-47.0); IMMATURE GRANULOCYTES 0.2 % (0.0-5.0); MEAN CELL VOLUME 88.9 fL CALC (80.0-100.0); MEAN CORPUSCULAR HGB 29.4 pG CALC (26.0-32.0); MEAN CORPUSCULAR HGB CONC 33.1 g/L CALC (32.0-36.0); NEUT# 6.41 thou/uL (2.00-7.15); RED BLOOD COUNT 4.76 mill/uL (4.20-5.60); RED CELL DISTRI WIDTH 14.1 % (11.5-15.5)
[2019-01-14 19:01] LABS: ALKALINE PHOSPHATASE 69 u/l (38-126); ANION GAP 12 (6-22 (CALC)); BILIRUBIN, TOTAL 0.6 mg/dL (0.0-1.4); BUN 12 mg/dL (7-17); BUN/CREATININE RATIO 22 (12-20 (CALC)); CARBON DIOXIDE 23 mmol/l (22-30); CHLORIDE 110 mmol/l (95-108); CREATININE 0.6 mg/dL (0.5-1.0); GFR > 60 ML/MIN (>=60 (CALC)); GFR FOR AFR.AMER. > 60 ML/MIN (>=60 (CALC)); LIPASE 73 u/l (23-300); POTASSIUM 3.7 mmol/l (3.5-5.1); SGOT/AST 25 u/l (14-36); SODIUM 141 mmol/l (137-146); TOTAL PROTEIN 6.7 g/dL (6.3-8.2)
--- NOTE | 2019-01-14 19:20 | NUR ---
PT UP TO BR TO VOID. GETTING URINE SAMPLE. ANTIBIOTICS COMPLETED.
--- NOTE | 2019-01-14 19:45 | NUR ---
ATTEMPTED TO CALL REPORT...NURSE WILL CALL BACK.
[2019-01-14 19:54] LABS: URINE BLOOD DIPSTICK NEGATIVE (NEGATIVE); URINE COLOR YELLOW; URINE GLUCOSE - DIPSTICK NEGATIVE (NEGATIVE); URINE KETONE NEGATIVE (NEGATIVE); URINE LEUK ESTERASE NEGATIVE (NEGATIVE); URINE NITRITE - DIPSTICK NEGATIVE (Negative); URINE PROTEIN - DIPSTICK NEGATIVE (NEG-TRACE); URINE SPECIFIC GRAVITY 1.025; URINE UROBILINOGEN - DIPSTICK 0.2 E.U./dL (0.2)
[2019-01-14 19:55] LABS: URINE BILIRUBIN - DIPSTICK NEGATIVE (NEGATIVE)
--- NOTE | 2019-01-14 19:59 | NUR ---
PT RESTING. WATCHING TV. NO PAIN AT THIS TIME.
--- NOTE | 2019-01-14 20:26 | NUR ---
PT NOW C/O PAIN. ORDERS FOR Q 4 HOUR. WILL ADVISE PT. REPORT TO RUPESH
--- NOTE | 2019-01-14 20:40 | NUR ---
REPORT WAS GIVEN. PT C/O PAIN. NOTIFIED AND AN ADDITIONAL DOSE OF MORPHINE ORDERED AND GIVEN. PT TO FLOOR VIA STRETCHER. AMBULATORY TO BED. APOLINAR.
[2019-01-14 20:45] VITALS: BP 141/71
--- NOTE | 2019-01-14 20:45 | NUR ---
ARRIVED TO THE FLOOR VIA STRETCHER ACCOMPANIED BY FERNANDO POLANCO. LMFT IN AT BEDSIDE SETTLED PT. INTO BED. CALL LIGHT IS IN REACH.
--- NOTE | 2019-01-14 21:40 | NUR ---
ADMISSION ASSESSMENT COMPLETED; IV SITE PATENT AND SL, FLUSHED WITH NS AND ORDERED IVF HUNG. PT. REPORTS PAIN IS RESOLVED AT THIS TIME TO LLQ; REVIEWING PT'S HOME MEDS CLARIFIED METOPROLOL AT THIS TIME. PT. REQUESTS SOMETHING TO EAT, WILL CALL MD FOR DIET ORDERS AND TO CLARIFY METOPROLOL. EDUCATED ON POC AND VERBALIZES UNDERSTANDING. DECLINES CHARLI HOSE TO BE APPLIED; ENCOURAGED TO CALL FOR ANY NEEDS. CALL LIGHT IS IN REACH; WILL CONTINUE TO MONITOR.
[2019-01-14] MEDS ORDERED: METOPROLOL TAR100 MG PO (21:46)
--- NOTE | 2019-01-14 23:48 | NUR ---
RESTING IN BED WITH NO DISTRESS NOTED; DENIES NEEDS. SCHED ABT HUNG. CALL LIGHT IS IN REACH.
--- NOTE | 2019-01-15 02:01 | NUR ---
RESTING IN BED ON RIGHT SIDE WITH EYES CLOSED; RESP. EVEN AND UNLABORED. CALL LIGHT IS IN REACH.
[2019-01-15 04:21] VITALS: BP 133/77
--- NOTE | 2019-01-15 04:23 | NUR ---
RESTING IN BED WITH EYES CLOSED; AWAKENED FOR VS; VSS; DENIES NEEDS. CALL LIGHT IS IN REACH.
--- NOTE | 2019-01-15 05:30 | NUR ---
PT. RESTING IN BED WITH NO DISTRESS NOTED; EYES CLOSED; RESP. EVEN AND UNLABORED. SCHED ABT HUNG. CALL LIGHT IS IN REACH. WILL CONTINUE TO MONITOR.
[2019-01-15 07:30] VITALS: BP 143/67
--- NOTE | 2019-01-15 07:30 | NUR ---
PT RESTING IN BED AWAKE. PT IS ALERT AND ORIENTED X3. PT REQUESTING PAIN MEDICATION. PT MEDICATED FOR PAIN PER MAR. SHIFT ASSESSMENT COMPLETED AT THIS TIME. IV PATENT X1. CALL LIGHT IN REACH. WILL CONTINUE TO MONITOR.
[2019-01-15 08:35] VITALS: BP 143/67
--- NOTE | 2019-01-15 10:00 | NUR ---
#20 RFA IV site discontinued, cath intact. No edema , no redness, voices no discomfort.
--- NOTE | 2019-01-15 10:02 | NUR ---
I CALLED THE CONSULTAION ORDERED FOR DR. SEN @10:06 AM. THE CONSULTATION IS FOR DIVERTICULITIS AND I LEFT A VERY DETAILED MESSAGE FOR STACY OSHEA AT [facility].
[2019-01-15] MEDS ORDERED: ERTAPENEM1 GM IV (10:15)
--- NOTE | 2019-01-15 10:45 | NUR ---
DR WHITE AND ISMAEL PRABHAKAR AT BEDSIDE AT THIS TIME
--- NOTE | 2019-01-15 11:30 | NUR ---
Peripheral IV started. IV access obtained with #22 [employer] at Left Wrist with 1 IV stick attempts. Flushes easily with good blood return.
[2019-01-15] MEDS ORDERED: ZOFRAN4 MG/TAB PO (12:07)
--- NOTE | 2019-01-15 12:39 | NUR ---
NOTIFIED IV THERAPY THAT PATIENT STATED 1300 WAS FINE FOR 01/16/19
--- NOTE | 2019-01-15 12:45 | NUR ---
DISCHARGE INSTRUCTION REVIEWED WITH PATIENT. PATIENT VERBALIZED UNDERSTANDING. PT TO BE DISCHARGED WITH IV FOR IV THERAPY TOMORROW.
--- NOTE | 2019-01-15 12:48 | NUR ---
Discharge instructions given. Patient verbalizes understanding of same. Discharged in stable condition via Ambulatory to Home with family. All belongings sent with pt.
== END 2019-01-15 12:48 | disposition home or self-care (01) ==
LOC: ED 17:56 → ED-I 18:51 → ED 18:57 → MS2 18:58
PROVIDERS: ADMIT Internal Medicine; ATTEND Internal Medicine
DX: K57.32 Diverticulitis of large intestine without perforation or abscess without bleeding (principal); I10 Essential (primary) hypertension; F17.200 Nicotine dependence, unspecified, uncomplicated; M19.90 Unspecified osteoarthritis, unspecified site; F32.9 Major depressive disorder, single episode, unspecified; K58.9 Irritable bowel syndrome, unspecified
CPT/HCPCS: J1335

== ENCOUNTER 2019-01-19 09:15 | Emergency (ER) | payer MEDICARE ==
[~2019-01-19] VITALS: Ht 160 cm; Wt 63.6 kg
[~2019-01-19 09:15] MED LIST changes: +ERTAPENEM1 GM IV; +METOPROLOL TAR100 MG PO; +ZOFRAN4 MG/TAB PO
[2019-01-19 09:46] LABS: HEMATOCRIT 41.3 % (37.0-47.0); HEMOGLOBIN 13.8 g/dl (12.0-16.0); IMMATURE GRANULOCYTES 0.3 % (0.0-5.0); MEAN CELL VOLUME 89.4 fL CALC (80.0-100.0); MEAN CORPUSCULAR HGB 29.9 pG CALC (26.0-32.0); MEAN CORPUSCULAR HGB CONC 33.4 g/L CALC (32.0-36.0); NEUT# 5.23 thou/uL (2.00-7.15); RED BLOOD COUNT 4.62 mill/uL (4.20-5.60); RED CELL DISTRI WIDTH 13.8 % (11.5-15.5)
[2019-01-19 10:09] LABS: ALBUMIN 3.9 g/dL (3.2-5.0); ALKALINE PHOSPHATASE 65 u/l (38-126); ANION GAP 11 (6-22 (CALC)); BILIRUBIN, TOTAL 0.5 mg/dL (0.0-1.4); BUN 15 mg/dL (7-17); BUN/CREATININE RATIO 23 (12-20 (CALC)); CARBON DIOXIDE 26 mmol/l (22-30); CHLORIDE 108 mmol/l (95-108); CREATININE 0.7 mg/dL (0.5-1.0); GFR > 60 ML/MIN (>=60 (CALC)); GFR FOR AFR.AMER. > 60 ML/MIN (>=60 (CALC)); LIPASE 76 u/l (23-300); POTASSIUM 4.2 mmol/l (3.5-5.1); SGOT/AST 22 u/l (14-36); SODIUM 141 mmol/l (137-146); TOTAL PROTEIN 6.5 g/dL (6.3-8.2)
[2019-01-19 10:39] LABS: URINE BILIRUBIN - DIPSTICK NEGATIVE (NEGATIVE); URINE BLOOD DIPSTICK NEGATIVE (NEGATIVE); URINE COLOR YELLOW; URINE GLUCOSE - DIPSTICK NEGATIVE (NEGATIVE); URINE KETONE NEGATIVE (NEGATIVE); URINE LEUK ESTERASE NEGATIVE (NEGATIVE); URINE NITRITE - DIPSTICK NEGATIVE (Negative); URINE PH 5.5 (4.5-8.0); URINE PROTEIN - DIPSTICK NEGATIVE (NEG-TRACE); URINE SPECIFIC GRAVITY >=1.030; URINE UROBILINOGEN - DIPSTICK 0.2 E.U./dL (0.2)
[2019-01-19 12:50] VITALS: BP 152/69
== END 2019-01-19 12:50 | disposition home or self-care (01) ==
LOC: ED 09:15
PROVIDERS: Family Medicine
DX: K57.32 Diverticulitis of large intestine without perforation or abscess without bleeding (principal); I10 Essential (primary) hypertension; F17.200 Nicotine dependence, unspecified, uncomplicated
CPT/HCPCS: J1335; Q9967

== ENCOUNTER 2019-02-18 05:07 | Emergency (ER) | payer MEDICARE ==
[~2019-02-18] VITALS: Ht 160 cm; Wt 63.0 kg
[2019-02-18 05:50] LABS: HEMATOCRIT 47.6 % (37.0-47.0); HEMOGLOBIN 15.6 g/dl (12.0-16.0); IMMATURE GRANULOCYTES 0.3 % (0.0-5.0); MEAN CORPUSCULAR HGB 29.5 pG CALC (26.0-32.0); MEAN CORPUSCULAR HGB CONC 32.8 g/L CALC (32.0-36.0); NEUT# 6.66 thou/uL (2.00-7.15); RED BLOOD COUNT 5.29 mill/uL (4.20-5.60); RED CELL DISTRI WIDTH 13.3 % (11.5-15.5); URINE BILIRUBIN - DIPSTICK NEGATIVE (NEGATIVE); URINE BLOOD DIPSTICK NEGATIVE (NEGATIVE); URINE COLOR YELLOW; URINE GLUCOSE - DIPSTICK NEGATIVE (NEGATIVE); URINE KETONE NEGATIVE (NEGATIVE); URINE LEUK ESTERASE NEGATIVE (NEGATIVE); URINE NITRITE - DIPSTICK NEGATIVE (Negative); URINE PH 7.5 (4.5-8.0); URINE PROTEIN - DIPSTICK NEGATIVE (NEG-TRACE); URINE UROBILINOGEN - DIPSTICK 0.2 E.U./dL (0.2)
[2019-02-18 06:05] LABS: ALBUMIN 4.5 g/dL (3.2-5.0); ALKALINE PHOSPHATASE 60 u/l (38-126); AMYLASE 61 u/l (30-110); ANION GAP 12 (6-22 (CALC)); BILIRUBIN, TOTAL 0.6 mg/dL (0.0-1.4); BUN 15 mg/dL (7-17); BUN/CREATININE RATIO 25 (12-20 (CALC)); CARBON DIOXIDE 30 mmol/l (22-30); CHLORIDE 104 mmol/l (95-108); CREATININE 0.6 mg/dL (0.5-1.0); GFR > 60 ML/MIN (>=60 (CALC)); GFR FOR AFR.AMER. > 60 ML/MIN (>=60 (CALC)); LIPASE 75 u/l (23-300); POTASSIUM 4.2 mmol/l (3.5-5.1); SGOT/AST 23 u/l (14-36); SODIUM 141 mmol/l (137-146); TOTAL PROTEIN 7.3 g/dL (6.3-8.2)
[2019-02-18 07:58] VITALS: BP 115/51
[2019-02-18] MEDS ORDERED: HYDROCO/APAP1 TA9 PO (08:09)
[2019-02-18] MEDS ORDERED: CIPROFLOXACN500 MG PO (08:09)
[2019-02-18] MEDS ORDERED: METRONIDAZOL250 MG PO (08:09)
[2019-04-02] MEDS ORDERED: MEGA BIOTIN10 MG PO (09:05)
[2019-04-02] MEDS ORDERED: BC HEADACH1 PO (09:05)
[2019-04-02] MEDS ORDERED: HYDROCO/APAP1 T13 PO (09:22)
[2019-04-02] MEDS ORDERED: OMEPRAZOLE20 MG PO (09:22)
[2019-04-02] MEDS ORDERED: FULL SPECTRUM S1 CAP XX (09:47)
== END 2019-02-18 08:14 | disposition home or self-care (01) ==
LOC: ED 05:07
PROVIDERS: Emergency Medicine
DX: K57.32 Diverticulitis of large intestine without perforation or abscess without bleeding (principal); I10 Essential (primary) hypertension; F17.210 Nicotine dependence, cigarettes, uncomplicated

== ENCOUNTER 2019-02-28 18:40 | Emergency (ER) | payer MEDICARE ==
[~2019-02-28] VITALS: Ht 160 cm; Wt 60.0 kg
[~2019-02-28 18:40] MED LIST changes: +HYDROCO/APAP1 TA9 PO
[2019-02-28 19:46] LABS: URINE BILIRUBIN - DIPSTICK NEGATIVE (NEGATIVE); URINE BLOOD DIPSTICK NEGATIVE (NEGATIVE); URINE COLOR YELLOW; URINE GLUCOSE - DIPSTICK NEGATIVE (NEGATIVE); URINE KETONE NEGATIVE (NEGATIVE); URINE LEUK ESTERASE NEGATIVE (NEGATIVE); URINE NITRITE - DIPSTICK NEGATIVE (Negative); URINE PH 5.5 (4.5-8.0); URINE PROTEIN - DIPSTICK NEGATIVE (NEG-TRACE); URINE UROBILINOGEN - DIPSTICK 0.2 E.U./dL (0.2)
[2019-02-28 19:47] LABS: IMMATURE GRANULOCYTES 0.5 % (0.0-5.0); MEAN CELL VOLUME 89.3 fL CALC (80.0-100.0); MEAN CORPUSCULAR HGB 29.5 pG CALC (26.0-32.0); NEUT# 5.02 thou/uL (2.00-7.15); RED BLOOD COUNT 4.48 mill/uL (4.20-5.60); RED CELL DISTRI WIDTH 13.7 % (11.5-15.5)
[2019-02-28 19:51] LABS: HEMOGLOBIN 13.2 g/dl (12.0-16.0)
[2019-02-28 20:07] LABS: ALBUMIN 3.8 g/dL (3.2-5.0); ALKALINE PHOSPHATASE 54 u/l (38-126); AMYLASE 64 u/l (30-110); ANION GAP 11 (6-22 (CALC)); BILIRUBIN, TOTAL 0.4 mg/dL (0.0-1.4); BUN 12 mg/dL (7-17); BUN/CREATININE RATIO 22 (12-20 (CALC)); CARBON DIOXIDE 26 mmol/l (22-30); CHLORIDE 104 mmol/l (95-108); CREATININE 0.6 mg/dL (0.5-1.0); GFR > 60 ML/MIN (>=60 (CALC)); GFR FOR AFR.AMER. > 60 ML/MIN (>=60 (CALC)); LIPASE 41 u/l (23-300); POTASSIUM 3.7 mmol/l (3.5-5.1); SGOT/AST 28 u/l (14-36); SODIUM 137 mmol/l (137-146); TOTAL PROTEIN 6.7 g/dL (6.3-8.2)
[2019-02-28] MEDS ORDERED: MAGNESIUM296 ML/BTL PO (23:23)
[2019-02-28] MEDS ORDERED: MIRALAX3350 N1 PO (23:23)
[2019-02-28 23:50] VITALS: BP 122/63
[2019-04-02] MEDS ORDERED: MEGA BIOTIN10 MG PO (09:05)
[2019-04-02] MEDS ORDERED: BC HEADACH1 PO (09:05)
[2019-04-02] MEDS ORDERED: OMEPRAZOLE20 MG PO (09:22)
[2019-04-02] MEDS ORDERED: HYDROCO/APAP1 T13 PO (09:22)
[2019-04-02] MEDS ORDERED: FULL SPECTRUM S1 CAP XX (09:47)
== END 2019-02-28 23:55 | disposition home or self-care (01) ==
LOC: ED 18:40
PROVIDERS: Family Medicine
DX: K57.30 Diverticulosis of large intestine without perforation or abscess without bleeding (principal); K59.01 Slow transit constipation; I10 Essential (primary) hypertension; F17.210 Nicotine dependence, cigarettes, uncomplicated
CPT/HCPCS: Q9967

== ENCOUNTER 2019-03-17 05:17 | Emergency (ER) | payer MEDICARE ==
[~2019-03-17] VITALS: Ht 160 cm; Wt 62.3 kg
[~2019-03-17 05:17] MED LIST changes: +MAGNESIUM296 ML/BTL PO; +MIRALAX3350 N1 PO
[2019-03-17] MEDS ORDERED: BUPROPION HCL150 M2 PO (06:10)
[2019-03-17 06:14] LABS: HEMATOCRIT 43.9 % (37.0-47.0); HEMOGLOBIN 14.6 g/dl (12.0-16.0); IMMATURE GRANULOCYTES 0.3 % (0.0-5.0); MEAN CELL VOLUME 87.6 fL CALC (80.0-100.0); MEAN CORPUSCULAR HGB 29.1 pG CALC (26.0-32.0); MEAN CORPUSCULAR HGB CONC 33.3 g/L CALC (32.0-36.0); NEUT# 7.92 thou/uL (2.00-7.15); RED BLOOD COUNT 5.01 mill/uL (4.20-5.60); RED CELL DISTRI WIDTH 13.9 % (11.5-15.5); URINE BLOOD DIPSTICK NEGATIVE (NEGATIVE); URINE COLOR YELLOW; URINE GLUCOSE - DIPSTICK NEGATIVE (NEGATIVE); URINE KETONE NEGATIVE (NEGATIVE); URINE LEUK ESTERASE NEGATIVE (NEGATIVE); URINE NITRITE - DIPSTICK NEGATIVE (Negative); URINE PROTEIN - DIPSTICK NEGATIVE (NEG-TRACE); URINE SPECIFIC GRAVITY >=1.030; URINE UROBILINOGEN - DIPSTICK 0.2 E.U./dL (0.2)
[2019-03-17 06:17] LABS: URINE BILIRUBIN - DIPSTICK SMALL (NEGATIVE)
[2019-03-17 06:28] LABS: ALKALINE PHOSPHATASE 62 u/l (38-126); ANION GAP 12 (6-22 (CALC)); BILIRUBIN, TOTAL 0.3 mg/dL (0.0-1.4); BUN 13 mg/dL (7-17); BUN/CREATININE RATIO 23 (12-20 (CALC)); CARBON DIOXIDE 24 mmol/l (22-30); CHLORIDE 107 mmol/l (95-108); CREATININE 0.6 mg/dL (0.5-1.0); GFR > 60 ML/MIN (>=60 (CALC)); GFR FOR AFR.AMER. > 60 ML/MIN (>=60 (CALC)); LIPASE 54 u/l (23-300); POTASSIUM 3.7 mmol/l (3.5-5.1); SGOT/AST 15 u/l (14-36); SODIUM 140 mmol/l (137-146); TOTAL PROTEIN 6.6 g/dL (6.3-8.2)
[2019-03-17] MEDS ORDERED: ONDANSETRON4 MG PO (09:02)
[2019-03-17] MEDS ORDERED: METRONIDAZOL500 MG PO (09:02)
[2019-03-17] MEDS ORDERED: CIPROFLOXACN500 MG PO (09:02)
[2019-03-17 09:20] VITALS: BP 142/73
[2019-04-02] MEDS ORDERED: MEGA BIOTIN10 MG PO (09:05)
[2019-04-02] MEDS ORDERED: BC HEADACH1 PO (09:05)
[2019-04-02] MEDS ORDERED: OMEPRAZOLE20 MG PO (09:22)
[2019-04-02] MEDS ORDERED: HYDROCO/APAP1 T13 PO (09:22)
[2019-04-02] MEDS ORDERED: FULL SPECTRUM S1 CAP XX (09:47)
== END 2019-03-17 09:29 | disposition home or self-care (01) ==
LOC: ED 05:17
DX: K50.10 Crohn's disease of large intestine without complications (principal); I10 Essential (primary) hypertension; F17.200 Nicotine dependence, unspecified, uncomplicated

== ENCOUNTER 2019-04-01 | Emergency (ER) | payer MEDICARE ==
[~2019-04-01] MED LIST changes: +BUPROPION HCL150 M2 PO; +ONDANSETRON4 MG PO
[2019-04-01] MEDS ORDERED: SULFACET SOD10 % OS (11:39)
[2019-04-02] MEDS ORDERED: MEGA BIOTIN10 MG PO (09:05)
[2019-04-02] MEDS ORDERED: BC HEADACH1 PO (09:05)
[2019-04-02] MEDS ORDERED: HYDROCO/APAP1 T13 PO (09:22)
[2019-04-02] MEDS ORDERED: OMEPRAZOLE20 MG PO (09:22)
[2019-04-02] MEDS ORDERED: FULL SPECTRUM S1 CAP XX (09:47)
== END 2019-04-01 11:45 | disposition home or self-care (01) ==
DX: S05.02XA Injury of conjunctiva and corneal abrasion without foreign body, left eye, initial encounter (principal); I10 Essential (primary) hypertension; F17.200 Nicotine dependence, unspecified, uncomplicated; W22.8XXA Striking against or struck by other objects, initial encounter

== ENCOUNTER 2019-04-07 | Inpatient (IN) | payer MEDICARE ==
[2019-04-07] VITALS (8 sets, daily range): BP systolic 114–141; BP diastolic 53–81
[~2019-04-07] MED LIST changes: +BC HEADACH1 PO; +FULL SPECTRUM S1 CAP XX; +MEGA BIOTIN10 MG PO; +OMEPRAZOLE20 MG PO; +SULFACET SOD10 % OS
[2019-04-08] VITALS (7 sets, daily range): BP systolic 119–156; BP diastolic 58–76
[2019-04-09 03:50] VITALS: BP 145/66
[2019-04-09 05:44] LABS: IMMATURE GRANULOCYTES 0.4 % (0.0-5.0); MEAN CORPUSCULAR HGB 29.4 pG CALC (26.0-32.0); NEUT# 5.1 thou/uL (2.00-7.15); RED BLOOD COUNT 4.01 mill/uL (4.20-5.60); RED CELL DISTRI WIDTH 14.8 % (11.5-15.5)
[2019-04-09 05:55] LABS: BUN 3 mg/dL (7-17); BUN/CREATININE RATIO 5 (12-20 (CALC)); CARBON DIOXIDE 30 mmol/l (22-30); CHLORIDE 98 mmol/l (95-108); CREATININE 0.5 mg/dL (0.5-1.0); GFR > 60 ML/MIN (>=60 (CALC)); GFR FOR AFR.AMER. > 60 ML/MIN (>=60 (CALC)); SODIUM 134 mmol/l (137-146)
[2019-04-09 06:04] LABS: ANION GAP 10 (6-22 (CALC)); HEMATOCRIT 36.9 % (37.0-47.0); HEMOGLOBIN 11.8 g/dl (12.0-16.0); POTASSIUM 3.6 mmol/l (3.5-5.1)
[2019-04-09] MEDS ORDERED: HYDROCO/APAP1 T13 PO (12:30)
== END 2019-04-09 13:25 | disposition home or self-care (01) | DRG 331 ==
PROVIDERS: ADMIT Surgery
PROC: 0DTNFZZ Resection of Sigmoid Colon, Via Natural or Artificial Opening With Percutaneous Endoscopic Assistance (ICD-10-PCS; principal; 2019-04-07)
DX: K57.32 Diverticulitis of large intestine without perforation or abscess without bleeding (principal); I10 Essential (primary) hypertension; F17.210 Nicotine dependence, cigarettes, uncomplicated; Z86.010 Personal history of colon polyps
CPT/HCPCS: J0131

== ENCOUNTER 2019-04-11 | Emergency (ER) | payer MEDICARE ==
[2019-04-12 00:18] LABS: HEMATOCRIT 37.8 % (37.0-47.0); HEMOGLOBIN 12.8 g/dl (12.0-16.0); IMMATURE GRANULOCYTES 0.1 % (0.0-5.0); MEAN CELL VOLUME 87.1 fL CALC (80.0-100.0); MEAN CORPUSCULAR HGB 29.5 pG CALC (26.0-32.0); MEAN CORPUSCULAR HGB CONC 33.9 g/L CALC (32.0-36.0); NEUT# 3.96 thou/uL (2.00-7.15); RED BLOOD COUNT 4.34 mill/uL (4.20-5.60); RED CELL DISTRI WIDTH 14.5 % (11.5-15.5)
[2019-04-12 00:30] LABS: ALBUMIN 3.6 g/dL (3.2-5.0); ALKALINE PHOSPHATASE 45 u/l (38-126); AMYLASE 37 u/l (30-110); ANION GAP 10 (6-22 (CALC)); BILIRUBIN, TOTAL 0.3 mg/dL (0.0-1.4); BUN 6 mg/dL (7-17); BUN/CREATININE RATIO 11 (12-20 (CALC)); CARBON DIOXIDE 31 mmol/l (22-30); CHLORIDE 96 mmol/l (95-108); CREATININE 0.5 mg/dL (0.5-1.0); GFR > 60 ML/MIN (>=60 (CALC)); GFR FOR AFR.AMER. > 60 ML/MIN (>=60 (CALC)); LIPASE 20 u/l (23-300); POTASSIUM 3.7 mmol/l (3.5-5.1); SGOT/AST 17 u/l (14-36); SODIUM 133 mmol/l (137-146); TOTAL PROTEIN 6.1 g/dL (6.3-8.2)
== END 2019-04-12 01:45 | disposition home or self-care (01) ==
PROVIDERS: Family Medicine
DX: R10.33 Periumbilical pain (principal); I10 Essential (primary) hypertension; F17.210 Nicotine dependence, cigarettes, uncomplicated; Z90.49 Acquired absence of other specified parts of digestive tract
CPT/HCPCS: Q9967

== ENCOUNTER 2019-05-22 | Emergency (ER) | payer MEDICARE ==
[2019-05-22 12:57] LABS: HEMATOCRIT 39.5 % (37.0-47.0); HEMOGLOBIN 13.1 g/dl (12.0-16.0); IMMATURE GRANULOCYTES 0.4 % (0.0-5.0); MEAN CORPUSCULAR HGB 29.8 pG CALC (26.0-32.0); MEAN CORPUSCULAR HGB CONC 33.2 g/L CALC (32.0-36.0); NEUT# 5.92 thou/uL (2.00-7.15); RED BLOOD COUNT 4.39 mill/uL (4.20-5.60); RED CELL DISTRI WIDTH 16.6 % (11.5-15.5)
[2019-05-22 13:02] LABS: GFR > 60 ML/MIN (>=60 (CALC)); GFR FOR AFR.AMER. > 60 ML/MIN (>=60 (CALC))
[2019-05-22 13:17] LABS: ALBUMIN 3.9 g/dL (3.2-5.0); ALKALINE PHOSPHATASE 55 u/l (38-126); ANION GAP 9 (6-22 (CALC)); BILIRUBIN, TOTAL 0.4 mg/dL (0.0-1.4); BUN 16 mg/dL (7-17); BUN/CREATININE RATIO 22 (12-20 (CALC)); CARBON DIOXIDE 27 mmol/l (22-30); CHLORIDE 106 mmol/l (95-108); CREATININE 0.7 mg/dL (0.5-1.0); GFR > 60 ML/MIN (>=60 (CALC)); GFR FOR AFR.AMER. > 60 ML/MIN (>=60 (CALC)); LIPASE 54 u/l (23-300); SGOT/AST 25 u/l (14-36); SODIUM 138 mmol/l (137-146); TOTAL PROTEIN 6.2 g/dL (6.3-8.2)
== END 2019-05-22 14:03 | disposition home or self-care (01) ==
PROVIDERS: Family Medicine
DX: K62.89 Other specified diseases of anus and rectum (principal); I10 Essential (primary) hypertension; F17.210 Nicotine dependence, cigarettes, uncomplicated

== ENCOUNTER 2019-09-23 18:49 | Emergency (ER) | payer MEDICARE ==
[~2019-09-23] VITALS: Ht 160 cm; Wt 63.0 kg
[2019-09-23] MEDS ORDERED: LOSARTAN POTASS50 MG PO (19:08)
[2019-09-23 19:57] LABS: HEMATOCRIT 36.5 % (37.0-47.0); HEMOGLOBIN 12.2 g/dl (12.0-16.0); IMMATURE GRANULOCYTES 0.1 % (0.0-5.0); MEAN CELL VOLUME 88.4 fL CALC (80.0-100.0); MEAN CORPUSCULAR HGB 29.5 pG CALC (26.0-32.0); MEAN CORPUSCULAR HGB CONC 33.4 g/dL CAL (32.0-36.0); NEUT# 3.67 thou/uL (2.00-7.15); RED BLOOD COUNT 4.13 mill/uL (4.20-5.60); RED CELL DISTRI WIDTH 14.6 % (11.5-15.5)
[2019-09-23 20:13] LABS: HCG SERUM/URINE (NEG/POS) NEGATIVE (NEGATIVE)
[2019-09-23 20:17] LABS: ALKALINE PHOSPHATASE 55 u/l (38-126); ANION GAP 7 (6-22 (CALC)); BILIRUBIN, TOTAL 0.3 mg/dL (0.0-1.4); BUN 12 mg/dL (7-17); BUN/CREATININE RATIO 17 (12-20 (CALC)); CARBON DIOXIDE 28 mmol/l (22-30); CHLORIDE 108 mmol/l (95-108); CREATININE 0.7 mg/dL (0.5-1.0); GFR > 60 ML/MIN (>=60 (CALC)); GFR FOR AFR.AMER. > 60 ML/MIN (>=60 (CALC)); POTASSIUM 3.8 mmol/l (3.5-5.1); SGOT/AST 20 u/l (14-36); SODIUM 139 mmol/l (137-146); TOTAL PROTEIN 6.2 g/dL (6.3-8.2)
[2019-09-23 20:27] LABS: D-DIMER 0.53 mg/L (0.19-0.60); PROTHROMBIN TIME 9.6 SECONDS (9.0-12.5)
[2019-09-23 20:29] LABS: MYOGLOBIN 22 ng/mL (0 - 62)
[2019-09-23 20:36] LABS: URINE BILIRUBIN - DIPSTICK NEGATIVE (NEGATIVE); URINE BLOOD DIPSTICK NEGATIVE (NEGATIVE); URINE COLOR YELLOW; URINE GLUCOSE - DIPSTICK NEGATIVE (NEGATIVE); URINE KETONE NEGATIVE (NEGATIVE); URINE LEUK ESTERASE NEGATIVE (NEGATIVE); URINE NITRITE - DIPSTICK NEGATIVE (Negative); URINE PROTEIN - DIPSTICK NEGATIVE (NEG-TRACE); URINE UROBILINOGEN - DIPSTICK 0.2 E.U./dL (0.2)
[2019-09-23 21:20] VITALS: BP 160/60
== END 2019-09-23 21:28 | disposition home or self-care (01) ==
LOC: ED 18:49
PROVIDERS: Family Medicine
DX: I10 Essential (primary) hypertension (principal); F17.210 Nicotine dependence, cigarettes, uncomplicated; R07.89 Other chest pain
CPT/HCPCS: J0131

== ENCOUNTER 2019-10-29 17:57 | Emergency (ER) | payer MEDICARE ==
[~2019-10-29] VITALS: Ht 160 cm; Wt 61.4 kg
[~2019-10-29 17:57] MED LIST changes: +LOSARTAN POTASS50 MG PO
[2019-10-29 20:05] VITALS: BP 126/62
== END 2019-10-29 20:07 | disposition home or self-care (01) ==
LOC: ED 17:57
DX: R51 Headache (principal); M54.2 Cervicalgia; G89.29 Other chronic pain; I10 Essential (primary) hypertension; F17.210 Nicotine dependence, cigarettes, uncomplicated

== ENCOUNTER 2020-02-07 20:27 | Emergency (ER) | payer MEDICARE ==
[~2020-02-07] VITALS: Ht 157.5 cm; Wt 68.0 kg
[2020-02-07] MEDS ORDERED: CLONIDINE0.1 MG PO (20:58)
[2020-02-07] MEDS ORDERED: CYMBALTA20 MG PO (20:59)
[2020-02-07] MEDS ORDERED: NAPROSYN250 MG PO (21:00)
[2020-02-07 21:19] VITALS: BP 157/81
== END 2020-02-07 21:30 | disposition home or self-care (01) ==
LOC: ED 20:27
DX: M89.49 Other hypertrophic osteoarthropathy, multiple sites (principal); I10 Essential (primary) hypertension; F32.9 Major depressive disorder, single episode, unspecified; F17.200 Nicotine dependence, unspecified, uncomplicated

== ENCOUNTER 2020-02-12 16:35 | Emergency (ER) | payer MEDICARE ==
[~2020-02-12] VITALS: Ht 157.5 cm; Wt 85.0 kg
[~2020-02-12 16:35] MED LIST changes: +CLONIDINE0.1 MG PO; +CYMBALTA20 MG PO; +NAPROSYN250 MG PO
[2020-02-12] MEDS ORDERED: LORTAB 1010 MG PO (18:50)
[2020-02-12 19:21] VITALS: BP 164/77
== END 2020-02-12 19:21 | disposition home or self-care (01) ==
LOC: ED 16:35
DX: S33.5XXA Sprain of ligaments of lumbar spine, initial encounter (principal); S09.90XA Unspecified injury of head, initial encounter; M25.511 Pain in right shoulder; I10 Essential (primary) hypertension; F32.9 Major depressive disorder, single episode, unspecified; F17.200 Nicotine dependence, unspecified, uncomplicated; V80.010A Animal-rider injured by fall from or being thrown from horse in noncollision accident, initial encounter; Y93.52 Activity, horseback riding; Y92.009 Unspecified place in unspecified non-institutional (private) residence as the place of occurrence of the external cause

== ENCOUNTER 2020-03-08 09:31 | Day surgery (SDC) | payer MEDICARE ==
[~2020-03-08 09:31] MED LIST changes: +LINZESS72 MCG PO; +LORTAB 1010 MG PO; +NAPROXEN250 MG PO; +OMEPRAZOLE DR40 MG PO
[2020-03-08 13:35] VITALS: BP 132/74
== END 2020-03-08 13:15 | disposition home or self-care (01) ==
LOC: ENDO 09:31 → ORM 10:05 → ENDO 13:15
PROVIDERS: ATTEND Surgery
PROC: 0DB98ZX Excision of Duodenum, Via Natural or Artificial Opening Endoscopic, Diagnostic (ICD-10-PCS; principal; 2020-03-08)
PROC: 0DB78ZX Excision of Stomach, Pylorus, Via Natural or Artificial Opening Endoscopic, Diagnostic (ICD-10-PCS; 2020-03-08)
DX: K29.50 Unspecified chronic gastritis without bleeding (principal); K44.9 Diaphragmatic hernia without obstruction or gangrene; I10 Essential (primary) hypertension; F17.210 Nicotine dependence, cigarettes, uncomplicated; Z79.899 Other long term (current) drug therapy; Z80.0 Family history of malignant neoplasm of digestive organs; Z20.828 Contact with and (suspected) exposure to other viral communicable diseases

== ENCOUNTER 2020-05-24 17:00 | Emergency (ER) | payer MEDICARE ==
[~2020-05-24] VITALS: Ht 157.5 cm; Wt 78.0 kg
[2020-05-24] MEDS ORDERED: HYDROCO/APAP1 TA9 PO (17:31)
[2020-05-24 18:00] VITALS: BP 173/78
== END 2020-05-24 18:09 | disposition home or self-care (01) ==
LOC: ED 17:00
DX: T81.49XA Infection following a procedure, other surgical site, initial encounter (principal); M54.5 Low back pain; I10 Essential (primary) hypertension; F17.200 Nicotine dependence, unspecified, uncomplicated; Z98.1 Arthrodesis status; Y83.8 Other surgical procedures as the cause of abnormal reaction of the patient, or of later complication, without mention of misadventure at the time of the procedure

== ENCOUNTER 2020-09-09 17:07 | Emergency (ER) | payer MEDICARE ==
[~2020-09-09] VITALS: Ht 157.5 cm; Wt 68.2 kg
[2020-09-09] MEDS ORDERED: GABAPENTIN100 MG PO (17:42)
[2020-09-09] MEDS ORDERED: CYMBALTA60 MG PO (17:44)
[2020-09-09] MEDS ORDERED: ATIVAN1 MG PO (17:44)
[2020-09-09] MEDS ORDERED: PREMARIN0.625 MG PO (17:45)
[2020-09-09 17:48] LABS: HEMATOCRIT 35.4 % (37.0-47.0); MEAN CELL VOLUME 78.8 fL CALC (80.0-100.0); MEAN CORPUSCULAR HGB 24.5 pG CALC (26.0-32.0); MEAN CORPUSCULAR HGB CONC 31.1 g/dL CAL (32.0-36.0); NEUT# 3.98 thou/uL (2.00-7.15); RED BLOOD COUNT 4.49 mill/uL (4.20-5.60)
[2020-09-09 17:54] LABS: ALKALINE PHOSPHATASE 64 u/l (38-126); ANION GAP 11 (6-22 (CALC)); BILIRUBIN, TOTAL 0.4 mg/dL (0.0-1.4); BUN 13 mg/dL (7-17); BUN/CREATININE RATIO 20 (12-20 (CALC)); CARBON DIOXIDE 27 mmol/l (22-30); CHLORIDE 101 mmol/l (95-108); CREATININE 0.7 mg/dL (0.5-1.0); GFR > 60 ML/MIN (>=60 (CALC)); GFR FOR AFR.AMER. > 60 ML/MIN (>=60 (CALC)); POTASSIUM 3.8 mmol/l (3.5-5.1); SGOT/AST 33 u/l (14-36); SODIUM 135 mmol/l (137-146)
[2020-09-09 18:06] LABS: MYOGLOBIN 20 ng/mL (0 - 62)
[2020-09-09 18:09] LABS: URINE BILIRUBIN - DIPSTICK NEGATIVE (NEGATIVE); URINE BLOOD DIPSTICK NEGATIVE (NEGATIVE); URINE COLOR YELLOW; URINE GLUCOSE - DIPSTICK NEGATIVE (NEGATIVE); URINE KETONE NEGATIVE (NEGATIVE); URINE LEUK ESTERASE NEGATIVE (NEGATIVE); URINE NITRITE - DIPSTICK NEGATIVE (Negative); URINE PROTEIN - DIPSTICK NEGATIVE (NEG-TRACE); URINE UROBILINOGEN - DIPSTICK 0.2 E.U./dL (0.2)
[2020-09-09 18:33] VITALS: BP 149/71
== END 2020-09-09 18:32 | disposition left against medical advice (07) ==
LOC: ED 17:07
DX: I10 Essential (primary) hypertension (principal); R51.9 Headache, unspecified; F17.210 Nicotine dependence, cigarettes, uncomplicated; Z91.19 Patient's noncompliance with other medical treatment and regimen

== ENCOUNTER 2020-09-28 13:31 | Emergency (ER) | payer MEDICARE ==
[~2020-09-28] VITALS: Ht 157.5 cm; Wt 68.2 kg
[~2020-09-28 13:31] MED LIST changes: +CYMBALTA60 MG PO; +PREMARIN0.625 MG PO
[2020-09-28 14:10] LABS: HEMATOCRIT 37.5 % (37.0-47.0); HEMOGLOBIN 11.9 g/dl (12.0-16.0); IMMATURE GRANULOCYTES 0.1 % (0.0-5.0); MEAN CELL VOLUME 81.2 fL CALC (80.0-100.0); MEAN CORPUSCULAR HGB 25.8 pG CALC (26.0-32.0); MEAN CORPUSCULAR HGB CONC 31.7 g/dL CAL (32.0-36.0); NEUT# 4.58 thou/uL (2.00-7.15); RED BLOOD COUNT 4.62 mill/uL (4.20-5.60)
[2020-09-28 14:15] VITALS: BP 158/78
[2020-09-28 14:21] LABS: ALKALINE PHOSPHATASE 61 u/l (38-126); ANION GAP 12 (6-22 (CALC)); BILIRUBIN, TOTAL 0.5 mg/dL (0.0-1.4); BUN 14 mg/dL (7-17); BUN/CREATININE RATIO 24 (12-20 (CALC)); CARBON DIOXIDE 27 mmol/l (22-30); CHLORIDE 99 mmol/l (95-108); CREATININE 0.6 mg/dL (0.5-1.0); GFR > 60 ML/MIN (>=60 (CALC)); GFR FOR AFR.AMER. > 60 ML/MIN (>=60 (CALC)); SGOT/AST 36 u/l (14-36); SODIUM 134 mmol/l (137-146); TOTAL PROTEIN 7.5 g/dL (6.3-8.2)
== END 2020-09-28 14:23 | disposition left against medical advice (07) ==
LOC: ED 13:31
PROVIDERS: Family Medicine
DX: I10 Essential (primary) hypertension (principal); F17.200 Nicotine dependence, unspecified, uncomplicated; Z91.19 Patient's noncompliance with other medical treatment and regimen

== ENCOUNTER 2020-10-12 19:52 | Emergency (ER) | payer MEDICARE ==
[2020-10-13] MEDS ORDERED: OMNI-PAC300 MG PO (14:12)
== END 2020-10-12 19:59 | disposition left against medical advice (07) ==
LOC: ED 19:52 → LWOBS 19:59
DX: Z53.21 Procedure and treatment not carried out due to patient leaving prior to being seen by health care provider (principal)

== ENCOUNTER 2020-10-13 11:52 | Emergency (ER) | payer MEDICARE ==
[~2020-10-13] VITALS: Ht 157.5 cm; Wt 70.0 kg
[2020-10-13] MEDS ORDERED: OMNI-PAC300 MG PO (14:12)
[2020-10-13 14:14] VITALS: BP 150/78
== END 2020-10-13 14:18 | disposition home or self-care (01) ==
LOC: ED 11:52
DX: T81.41XA Infection following a procedure, superficial incisional surgical site, initial encounter (principal); L03.312 Cellulitis of back [any part except buttock and flank]; I10 Essential (primary) hypertension; F17.200 Nicotine dependence, unspecified, uncomplicated; Y83.9 Surgical procedure, unspecified as the cause of abnormal reaction of the patient, or of later complication, without mention of misadventure at the time of the procedure

== ENCOUNTER 2020-10-22 18:30 | Emergency (ER) | payer MEDICARE ==
[~2020-10-22] VITALS: Ht 157.5 cm; Wt 69.0 kg
[~2020-10-22 18:30] MED LIST changes: +OMNI-PAC300 MG PO
[2020-10-22 18:54] VITALS: BP 139/65
== END 2020-10-22 21:00 | disposition home or self-care (01) ==
LOC: ED 18:30
DX: G89.29 Other chronic pain (principal); M54.5 Low back pain; I10 Essential (primary) hypertension; M19.90 Unspecified osteoarthritis, unspecified site; F17.210 Nicotine dependence, cigarettes, uncomplicated

== ENCOUNTER 2020-11-14 15:57 | Emergency (ER) | payer MEDICARE ==
[~2020-11-14] VITALS: Ht 157.5 cm; Wt 66.0 kg
[2020-11-14 16:55] LABS: HEMATOCRIT 41.6 % (37.0-47.0); HEMOGLOBIN 13.4 g/dl (12.0-16.0); IMMATURE GRANULOCYTES 0.1 % (0.0-5.0); MEAN CELL VOLUME 84.4 fL CALC (80.0-100.0); MEAN CORPUSCULAR HGB 27.2 pG CALC (26.0-32.0); MEAN CORPUSCULAR HGB CONC 32.2 g/dL CAL (32.0-36.0); NEUT# 10.13 thou/uL (2.00-7.15); RED BLOOD COUNT 4.93 mill/uL (4.20-5.60); RED CELL DISTRI WIDTH 18.5 % (11.5-15.5)
[2020-11-14 17:02] VITALS: BP 115/70
[2020-11-14 17:10] LABS: D-DIMER 1.08 mg/L (0.19-0.60)
[2020-11-14 17:15] LABS: ALBUMIN 4.6 g/dL (3.2-5.0); ALKALINE PHOSPHATASE 82 u/l (38-126); ANION GAP 15 (6-22 (CALC)); BILIRUBIN, TOTAL 0.3 mg/dL (0.0-1.4); BUN 16 mg/dL (7-17); BUN/CREATININE RATIO 17 (12-20 (CALC)); CARBON DIOXIDE 23 mmol/l (22-30); CHLORIDE 106 mmol/l (95-108); GFR 58 ML/MIN (>=60 (CALC)); GFR FOR AFR.AMER. > 60 ML/MIN (>=60 (CALC)); LIPASE 37 u/l (23-300); MAGNESIUM 2.1 mg/dL (1.6-2.3); POTASSIUM 4.8 mmol/l (3.5-5.1); SGOT/AST 42 u/l (14-36); SODIUM 139 mmol/l (137-146); TOTAL PROTEIN 7.7 g/dL (6.3-8.2)
[2020-11-14 17:16] LABS: ACT PARTIAL THROMBO TIME 23.4 SECONDS (20.0-32.5); INTERNATIONAL NORMALIZED RATIO 0.9 RATIO (0.7-1.3); PROTHROMBIN TIME 9.7 SECONDS (9.0-12.5)
[2020-11-14 18:02] LABS: URINE BILIRUBIN - DIPSTICK NEGATIVE (NEGATIVE); URINE BLOOD DIPSTICK NEGATIVE (NEGATIVE); URINE COLOR YELLOW; URINE GLUCOSE - DIPSTICK NEGATIVE (NEGATIVE); URINE KETONE NEGATIVE (NEGATIVE); URINE LEUK ESTERASE NEGATIVE (NEGATIVE); URINE PH 5.5 (4.5-8.0); URINE PROTEIN - DIPSTICK 30 mg/dL (NEG-TRACE); URINE SPECIFIC GRAVITY >=1.030; URINE UROBILINOGEN - DIPSTICK 0.2 E.U./dL (0.2)
[2020-11-14 18:04] LABS: URINE NITRITE - DIPSTICK NEGATIVE (Negative)
[2020-11-14 18:18] LABS: URINE RBC 0-2 RBC/hpf (0-5); URINE SQUAMOUS EPITHELIAL CELL MANY EPI/hpf (0-FEW); URINE WBC 0-2 WBC/hpf (0-5)
== END 2020-11-14 18:30 | disposition home or self-care (01) ==
LOC: ED 15:57
DX: R00.2 Palpitations (principal); G89.29 Other chronic pain; I10 Essential (primary) hypertension; M19.90 Unspecified osteoarthritis, unspecified site; F17.200 Nicotine dependence, unspecified, uncomplicated; Z88.6 Allergy status to analgesic agent
CPT/HCPCS: Q9967

== ENCOUNTER 2021-04-26 15:43 | Emergency (ER) | payer MEDICARE ==
[~2021-04-26] VITALS: Ht 157.5 cm; Wt 66.0 kg
[2021-04-26 17:38] LABS: HEMATOCRIT 37.6 % (37.0-47.0); HEMOGLOBIN 11.9 g/dl (12.0-16.0); IMMATURE GRANULOCYTES 0.2 % (0.0-5.0); MEAN CELL VOLUME 86.2 fL CALC (80.0-100.0); MEAN CORPUSCULAR HGB 27.3 pG CALC (26.0-32.0); MEAN CORPUSCULAR HGB CONC 31.6 g/dL CAL (32.0-36.0); NEUT# 2.08 thou/uL (2.00-7.15); RED BLOOD COUNT 4.36 mill/uL (4.20-5.60); RED CELL DISTRI WIDTH 15.9 % (11.5-15.5)
[2021-04-26 17:51] LABS: ALBUMIN 3.9 g/dL (3.2-5.0); ALKALINE PHOSPHATASE 84 u/l (38-126); ANION GAP 13 (6-22 (CALC)); BILIRUBIN, TOTAL 0.2 mg/dL (0.0-1.4); BUN 20 mg/dL (7-17); BUN/CREATININE RATIO 25 (12-20 (CALC)); CARBON DIOXIDE 26 mmol/l (22-30); CHLORIDE 105 mmol/l (95-108); CREATININE 0.8 mg/dL (0.5-1.0); GFR > 60 ML/MIN (>=60 (CALC)); GFR FOR AFR.AMER. > 60 ML/MIN (>=60 (CALC)); SGOT/AST 37 u/l (14-36); SODIUM 140 mmol/l (137-146); TOTAL PROTEIN 7.4 g/dL (6.3-8.2)
[2021-04-26 17:55] LABS: POTASSIUM 3.7 mmol/l (3.5-5.1)
[2021-04-26 18:53] VITALS: BP 133/59
== END 2021-04-26 19:01 | disposition home or self-care (01) ==
LOC: ED 15:43
PROVIDERS: Family Medicine
DX: U07.1 COVID-19 (principal); I10 Essential (primary) hypertension; F17.210 Nicotine dependence, cigarettes, uncomplicated

== ENCOUNTER 2021-07-25 06:35 | Day surgery (SDC) | payer MEDICARE ==
[~2021-07-25] VITALS: Ht 160 cm; Wt 71.2 kg
[~2021-07-25 06:35] MED LIST changes: +NORVASC PO; +POTASSIUM99 MG PO; +TOPAMAX50 M1 PO
[2021-07-25 09:48] VITALS: BP 96/53
== END 2021-07-25 09:40 | disposition home or self-care (01) ==
LOC: ENDO 06:35 → ORM 09:30 → ENDO 09:30
PROVIDERS: ATTEND Surgery
DX: Z86.010 Personal history of colon polyps (principal); Z80.0 Family history of malignant neoplasm of digestive organs

== ENCOUNTER 2021-12-12 15:45 | Emergency (ER) | payer MEDICARE ==
[2021-12-12] VITALS (8 sets, daily range): BP systolic 122–155; BP diastolic 63–82
[~2021-12-12] VITALS: Ht 160 cm; Wt 65.9 kg
[2021-12-12] MEDS ORDERED: LINZESS72 MCG (16:08)
[2021-12-12 16:22] LABS: URINE BILIRUBIN - DIPSTICK NEGATIVE (NEGATIVE); URINE BLOOD DIPSTICK NEGATIVE (NEGATIVE); URINE COLOR YELLOW; URINE GLUCOSE - DIPSTICK NEGATIVE (NEGATIVE); URINE KETONE NEGATIVE (NEGATIVE); URINE LEUK ESTERASE NEGATIVE (NEGATIVE); URINE NITRITE - DIPSTICK NEGATIVE (Negative); URINE PH 6.5 (4.5-8.0); URINE PROTEIN - DIPSTICK NEGATIVE (NEG-TRACE); URINE SPECIFIC GRAVITY <=1.005; URINE UROBILINOGEN - DIPSTICK 0.2 E.U./dL (0.2)
[2021-12-12 16:24] LABS: HEMATOCRIT 37.2 % (37.0-47.0); IMMATURE GRANULOCYTES 0.1 % (0.0-5.0); MEAN CELL VOLUME 85.3 fL CALC (80.0-100.0); MEAN CORPUSCULAR HGB 27.5 pG CALC (26.0-32.0); MEAN CORPUSCULAR HGB CONC 32.3 g/dL CAL (32.0-36.0); NEUT# 4.69 thou/uL (2.00-7.15); RED BLOOD COUNT 4.36 mill/uL (4.20-5.60); RED CELL DISTRI WIDTH 15.1 % (11.5-15.5)
[2021-12-12 16:42] LABS: ALBUMIN 4.3 g/dL (3.2-5.0); ALKALINE PHOSPHATASE 78 u/l (38-126); ANION GAP 11 (6-22 (CALC)); BILIRUBIN, TOTAL 0.2 mg/dL (0.0-1.4); BUN 11 mg/dL (7-17); BUN/CREATININE RATIO 12 (12-20 (CALC)); CARBON DIOXIDE 25 mmol/l (22-30); CHLORIDE 104 mmol/l (95-108); CREATININE 0.9 mg/dL (0.5-1.0); GFR FOR AFR.AMER. > 60 ML/MIN (>=60 (CALC)); GFR OTHER RACES > 60 ML/MIN (>=60 (CALC)); LIPASE 64 u/l (23-300); POTASSIUM 3.7 mmol/l (3.5-5.1); SGOT/AST 30 u/l (14-36); SODIUM 136 mmol/l (137-146); TOTAL PROTEIN 6.8 g/dL (6.3-8.2)
[2021-12-12] MEDS ORDERED: HYDROCHLOROT25 MG PO (17:16)
== END 2021-12-12 18:15 | disposition left against medical advice (07) ==
LOC: ED 15:45
PROVIDERS: Family Medicine
DX: R10.13 Epigastric pain (principal); R10.12 Left upper quadrant pain; I10 Essential (primary) hypertension; F17.210 Nicotine dependence, cigarettes, uncomplicated; Z91.19 Patient's noncompliance with other medical treatment and regimen
CPT/HCPCS: Q9967; S0164

== ENCOUNTER 2022-06-12 21:15 | Emergency (ER) | payer MEDICARE ==
[~2022-06-12] VITALS: Ht 160 cm; Wt 68.0 kg
[~2022-06-12 21:15] MED LIST changes: +LINZESS72 MCG
[2022-06-12 21:26] VITALS: BP 141/80
[2022-06-12 21:31] VITALS: BP 150/75
[2022-06-12] MEDS ORDERED: BACLOFEN20 MG PO (21:44)
[2022-06-12 21:45] VITALS: BP 117/57
[2022-06-12 22:00] VITALS: BP 137/73
[2022-06-12 22:13] VITALS: BP 137/73
== END 2022-06-12 22:15 | disposition home or self-care (01) ==
LOC: ED 21:15
DX: G89.29 Other chronic pain (principal); M25.59 Pain in other specified joint; M54.9 Dorsalgia, unspecified; M19.90 Unspecified osteoarthritis, unspecified site; I10 Essential (primary) hypertension; F17.200 Nicotine dependence, unspecified, uncomplicated

== ENCOUNTER 2022-06-13 02:54 | Emergency (ER) | payer MEDICARE ==
[~2022-06-13] VITALS: Ht 160 cm; Wt 68.0 kg
[~2022-06-13 02:54] MED LIST changes: +BACLOFEN20 MG PO
[2022-06-13 03:20] VITALS: BP 123/69
== END 2022-06-13 03:20 | disposition home or self-care (01) ==
LOC: ED 02:54
DX: G89.29 Other chronic pain (principal); M54.9 Dorsalgia, unspecified; I10 Essential (primary) hypertension; M19.90 Unspecified osteoarthritis, unspecified site; F17.200 Nicotine dependence, unspecified, uncomplicated

== ENCOUNTER 2022-12-10 11:45 | Emergency (ER) | payer MEDICARE ==
[~2022-12-10] VITALS: Ht 160 cm; Wt 63.5 kg
[2022-12-10] VITALS (9 sets, daily range): BP systolic 121–150; BP diastolic 61–95
[2022-12-10 12:11] LABS: URINE BILIRUBIN - DIPSTICK Negative (NEGATIVE); URINE BLOOD DIPSTICK Negative (NEGATIVE); URINE GLUCOSE - DIPSTICK Negative (NEGATIVE); URINE KETONE Negative (NEGATIVE); URINE LEUK ESTERASE Negative (NEGATIVE); URINE NITRITE - DIPSTICK Negative (Negative); URINE PROTEIN - DIPSTICK Negative (NEG-TRACE); URINE SPECIFIC GRAVITY 1.015; URINE UROBILINOGEN - DIPSTICK 0.2 E.U./dL (0.2)
[2022-12-10 12:12] LABS: URINE COLOR Yellow
[2022-12-10 12:19] LABS: BASO% 0.4 % (0-3); IMMATURE GRANULOCYTES 0.1 % (0.0-5.0); LYMPH% 32.4 % (15-41); MEAN CELL VOLUME 88.6 fL CALC (80.0-100.0); MEAN CORPUSCULAR HGB 29.5 pG CALC (26.0-32.0); MEAN CORPUSCULAR HGB CONC 33.3 g/dL CAL (32.0-36.0); MONO% 5.9 % (2-13); NEUT# 5.37 thou/uL (2.00-7.15); NEUT% 58.2 % (42-76); RED BLOOD COUNT 4.92 mill/uL (4.20-5.60); RED CELL DISTRI WIDTH 16.6 % (11.5-15.5)
[2022-12-10 12:26] LABS: HEMATOCRIT 43.6 % (37.0-47.0); HEMOGLOBIN 14.5 g/dl (12.0-16.0)
[2022-12-10 12:32] LABS: ALBUMIN 4.3 g/dL (3.2-5.0); ALKALINE PHOSPHATASE 67 u/l (38-126); ANION GAP 9 (6-22 (CALC)); BUN 19 mg/dL (7-17); BUN/CREATININE RATIO 25 (12-20 (CALC)); CARBON DIOXIDE 29 mmol/l (22-30); CHLORIDE 106 mmol/l (95-108); CREATININE 0.8 mg/dL (0.5-1.0); GFR FOR AFR.AMER. > 60 ML/MIN (>=60 (CALC)); GFR OTHER RACES > 60 ML/MIN (>=60 (CALC)); POTASSIUM 3.6 mmol/l (3.5-5.1); SGOT/AST 37 u/l (14-36); SODIUM 141 mmol/l (137-146); TOTAL PROTEIN 7.1 g/dL (6.3-8.2)
[2022-12-10 12:33] LABS: BILIRUBIN, TOTAL 0.5 mg/dL (0.02-1.3)
[2022-12-10] MEDS ORDERED: ZOFRAN4 MG/TAB PO (14:19)
[2022-12-10] MEDS ORDERED: PROMETHAZINE HY25 M1 PO (14:19)
[2022-12-12] MEDS ORDERED: CARAFATE1 GM PO (09:24)
== END 2022-12-10 14:35 | disposition home or self-care (01) ==
LOC: ED 11:45
PROVIDERS: Family Medicine
DX: R10.12 Left upper quadrant pain (principal); I10 Essential (primary) hypertension; F17.210 Nicotine dependence, cigarettes, uncomplicated; Z90.49 Acquired absence of other specified parts of digestive tract
CPT/HCPCS: Q9967; S0164

== ENCOUNTER 2023-01-29 16:34 | Emergency (ER) | payer MEDICARE, MEDICAID ==
[~2023-01-29] VITALS: Ht 160 cm; Wt 65.0 kg
[~2023-01-29 16:34] MED LIST changes: +ATIVAN2 MG PO; +CARAFATE1 GM PO; +PROMETHAZINE HY25 M1 PO
[2023-01-29 17:00] VITALS: BP 134/77
[2023-01-29 17:18] LABS: BASO% 0.7 % (0-3); EOS% 2.8 % (0-8); HEMATOCRIT 40.1 % (37.0-47.0); HEMOGLOBIN 13.7 g/dl (12.0-16.0); IMMATURE GRANULOCYTES 0.1 % (0.0-5.0); MEAN CELL VOLUME 92.4 fL CALC (80.0-100.0); MEAN CORPUSCULAR HGB 31.6 pG CALC (26.0-32.0); MEAN CORPUSCULAR HGB CONC 34.2 g/dL CAL (32.0-36.0); MONO% 9.5 % (2-13); NEUT# 4.62 thou/uL (2.00-7.15); NEUT% 46.9 % (42-76); RED BLOOD COUNT 4.34 mill/uL (4.20-5.60); RED CELL DISTRI WIDTH 13.3 % (11.5-15.5)
[2023-01-29 17:18] LABS: URINE BILIRUBIN - DIPSTICK Negative (NEGATIVE); URINE BLOOD DIPSTICK Negative (NEGATIVE); URINE GLUCOSE - DIPSTICK Negative (NEGATIVE); URINE KETONE Negative (NEGATIVE); URINE LEUK ESTERASE Negative (NEGATIVE); URINE NITRITE - DIPSTICK Negative (Negative); URINE PROTEIN - DIPSTICK Negative (NEG-TRACE); URINE SPECIFIC GRAVITY >=1.030; URINE UROBILINOGEN - DIPSTICK 0.2 E.U./dL (0.2)
[2023-01-29 17:20] LABS: URINE COLOR Yellow
[2023-01-29 17:37] LABS: ALBUMIN 3.8 g/dL (3.2-5.0); ALKALINE PHOSPHATASE 69 u/l (38-126); ANION GAP 14 (6-22 (CALC)); BILIRUBIN, TOTAL 0.3 mg/dL (0.02-1.3); BUN 17 mg/dL (7-17); BUN/CREATININE RATIO 20 (12-20 (CALC)); CARBON DIOXIDE 25 mmol/l (22-30); CHLORIDE 100 mmol/l (95-108); CREATININE 0.8 mg/dL (0.5-1.0); GFR FOR AFR.AMER. > 60 ML/MIN (>=60 (CALC)); GFR OTHER RACES > 60 ML/MIN (>=60 (CALC)); LIPASE 74 u/l (23-300); POTASSIUM 3.4 mmol/l (3.5-5.1); SGOT/AST 52 u/l (14-36); SODIUM 136 mmol/l (137-146)
[2023-01-29 17:40] VITALS: BP 129/70
[2023-01-29 18:00] VITALS: BP 118/76
[2023-01-29] MEDS ORDERED: PROTONIX40 M2 PO (18:43)
[2023-01-29 19:08] VITALS: BP 118/76
== END 2023-01-29 19:15 | disposition home or self-care (01) ==
LOC: ED 16:34
PROVIDERS: Family Medicine
DX: K29.20 Alcoholic gastritis without bleeding (principal); K59.00 Constipation, unspecified; I10 Essential (primary) hypertension; F17.200 Nicotine dependence, unspecified, uncomplicated
CPT/HCPCS: Q9967; S0164

== ENCOUNTER 2023-04-08 12:50 | Emergency (ER) | payer MEDICARE ==
[~2023-04-08] VITALS: Ht 160 cm; Wt 63.5 kg
[~2023-04-08 12:50] MED LIST changes: +PROTONIX40 M2 PO
[2023-04-08 13:00] VITALS: BP 126/71
[2023-04-08 13:31] VITALS: BP 121/65
[2023-04-08 13:47] LABS: BASO% 0.6 % (0-3); EOS% 2.5 % (0-8); HEMOGLOBIN 15.3 g/dl (12.0-16.0); IMMATURE GRANULOCYTES 0.1 % (0.0-5.0); LYMPH% 33.3 % (15-41); MEAN CELL VOLUME 92.4 fL CALC (80.0-100.0); MEAN CORPUSCULAR HGB 31.4 pG CALC (26.0-32.0); MONO% 6.3 % (2-13); NEUT# 4.63 thou/uL (2.00-7.15); NEUT% 57.2 % (42-76); RED BLOOD COUNT 4.87 mill/uL (4.20-5.60); RED CELL DISTRI WIDTH 12.7 % (11.5-15.5)
[2023-04-08 14:01] VITALS: BP 110/58
[2023-04-08 14:12] LABS: URINE BILIRUBIN - DIPSTICK Negative (NEGATIVE); URINE BLOOD DIPSTICK Negative (NEGATIVE); URINE COLOR Yellow; URINE GLUCOSE - DIPSTICK Negative (NEGATIVE); URINE KETONE Negative (NEGATIVE); URINE LEUK ESTERASE Negative (NEGATIVE); URINE NITRITE - DIPSTICK Negative (Negative); URINE PH 6.5 (4.5-8.0); URINE PROTEIN - DIPSTICK Negative (NEG-TRACE); URINE UROBILINOGEN - DIPSTICK 0.2 E.U./dL (0.2)
[2023-04-08 14:13] LABS: ALBUMIN 4.5 g/dL (3.2-5.0); ALKALINE PHOSPHATASE 77 u/l (38-126); AMYLASE 71 u/l (30-110); ANION GAP 11 (6-22 (CALC)); BILIRUBIN, TOTAL 0.4 mg/dL (0.02-1.3); BUN 15 mg/dL (7-17); BUN/CREATININE RATIO 18 (12-20 (CALC)); CARBON DIOXIDE 27 mmol/l (22-30); CHLORIDE 107 mmol/l (95-108); CREATININE 0.8 mg/dL (0.5-1.0); GFR FOR AFR.AMER. > 60 ML/MIN (>=60 (CALC)); GFR OTHER RACES > 60 ML/MIN (>=60 (CALC)); LIPASE 48 u/l (23-300); POTASSIUM 3.6 mmol/l (3.5-5.1); SGOT/AST 40 u/l (14-36); SODIUM 141 mmol/l (137-146); TOTAL PROTEIN 7.1 g/dL (6.3-8.2)
[2023-04-08 14:48] VITALS: BP 133/70
[2023-04-08 15:03] VITALS: BP 133/70
[2023-04-09] MEDS ORDERED: PERCOCET 5/325M1 TAB PO (16:52)
== END 2023-04-08 15:04 | disposition left against medical advice (07) ==
LOC: ED 12:50
PROVIDERS: Nurse Practitioner
DX: R10.11 Right upper quadrant pain (principal); R10.13 Epigastric pain; R11.2 Nausea with vomiting, unspecified; I10 Essential (primary) hypertension; F17.210 Nicotine dependence, cigarettes, uncomplicated; Z53.29 Procedure and treatment not carried out because of patient's decision for other reasons
CPT/HCPCS: Q9967

== ENCOUNTER 2023-04-09 14:22 | Emergency (ER) | payer MEDICARE ==
[~2023-04-09] VITALS: Ht 160 cm; Wt 63.5 kg
[2023-04-09 14:46] VITALS: BP 126/67
[2023-04-09 15:00] VITALS: BP 124/64
[2023-04-09 15:30] VITALS: BP 129/74
[2023-04-09 15:56] LABS: BASO% 0.7 % (0-3); EOS% 3.4 % (0-8); HEMATOCRIT 43.8 % (37.0-47.0); HEMOGLOBIN 14.7 g/dl (12.0-16.0); LYMPH% 40.3 % (15-41); MEAN CELL VOLUME 92.8 fL CALC (80.0-100.0); MEAN CORPUSCULAR HGB 31.1 pG CALC (26.0-32.0); MEAN CORPUSCULAR HGB CONC 33.6 g/dL CAL (32.0-36.0); MONO% 8.5 % (2-13); NEUT# 3.5 thou/uL (2.00-7.15); NEUT% 47.1 % (42-76); RED BLOOD COUNT 4.72 mill/uL (4.20-5.60); RED CELL DISTRI WIDTH 12.7 % (11.5-15.5)
[2023-04-09 16:08] LABS: LIPASE 50 u/l (23-300)
[2023-04-09 16:37] VITALS: BP 135/80
[2023-04-09 16:47] LABS: ALBUMIN 4.3 g/dL (3.2-5.0); ALKALINE PHOSPHATASE 68 u/l (38-126); ANION GAP 8 (6-22 (CALC)); BILIRUBIN, TOTAL 0.4 mg/dL (0.02-1.3); BUN 15 mg/dL (7-17); BUN/CREATININE RATIO 20 (12-20 (CALC)); CARBON DIOXIDE 28 mmol/l (22-30); CHLORIDE 108 mmol/l (95-108); CREATININE 0.7 mg/dL (0.5-1.0); GFR FOR AFR.AMER. > 60 ML/MIN (>=60 (CALC)); GFR OTHER RACES > 60 ML/MIN (>=60 (CALC)); POTASSIUM 4.1 mmol/l (3.5-5.1); SGOT/AST 46 u/l (14-36); SODIUM 140 mmol/l (137-146); TOTAL PROTEIN 6.4 g/dL (6.3-8.2)
[2023-04-09] MEDS ORDERED: PERCOCET 5/325M1 TAB PO (16:52)
[2023-04-09 16:57] VITALS: BP 135/80
== END 2023-04-09 16:58 | disposition home or self-care (01) ==
LOC: ED 14:22
PROVIDERS: Emergency Medicine
DX: R10.9 Unspecified abdominal pain (principal); I10 Essential (primary) hypertension; F17.210 Nicotine dependence, cigarettes, uncomplicated
CPT/HCPCS: S0164

== ENCOUNTER 2023-04-14 11:57 | Emergency (ER) | payer MEDICARE ==
[~2023-04-14] VITALS: Ht 160 cm; Wt 65.0 kg
[2023-04-14 12:11] VITALS: BP 130/79
[2023-04-14 12:15] VITALS: BP 148/90
[2023-04-14 12:30] VITALS: BP 135/76
[2023-04-14 12:40] LABS: BASO% 0.6 % (0-3); EOS% 2.1 % (0-8); HEMATOCRIT 44.7 % (37.0-47.0); HEMOGLOBIN 15.5 g/dl (12.0-16.0); IMMATURE GRANULOCYTES 0.1 % (0.0-5.0); LYMPH% 29.6 % (15-41); MEAN CELL VOLUME 91.8 fL CALC (80.0-100.0); MEAN CORPUSCULAR HGB 31.8 pG CALC (26.0-32.0); MEAN CORPUSCULAR HGB CONC 34.7 g/dL CAL (32.0-36.0); MONO% 6.9 % (2-13); NEUT# 5.12 thou/uL (2.00-7.15); NEUT% 60.7 % (42-76); RED BLOOD COUNT 4.87 mill/uL (4.20-5.60); RED CELL DISTRI WIDTH 12.6 % (11.5-15.5)
[2023-04-14 12:45] VITALS: BP 132/72
[2023-04-14 12:51] LABS: URINE BILIRUBIN - DIPSTICK Negative (NEGATIVE); URINE BLOOD DIPSTICK Negative (NEGATIVE); URINE COLOR Yellow; URINE GLUCOSE - DIPSTICK Negative (NEGATIVE); URINE KETONE Negative (NEGATIVE); URINE LEUK ESTERASE Negative (NEGATIVE); URINE NITRITE - DIPSTICK Negative (Negative); URINE PROTEIN - DIPSTICK Negative (NEG-TRACE); URINE UROBILINOGEN - DIPSTICK 0.2 E.U./dL (0.2)
[2023-04-14 12:56] LABS: ALBUMIN 4.6 g/dL (3.2-5.0); ALKALINE PHOSPHATASE 71 u/l (38-126); ANION GAP 9 (6-22 (CALC)); BILIRUBIN, TOTAL 0.5 mg/dL (0.02-1.3); BUN 17 mg/dL (7-17); BUN/CREATININE RATIO 23 (12-20 (CALC)); CARBON DIOXIDE 28 mmol/l (22-30); CHLORIDE 105 mmol/l (95-108); CREATININE 0.8 mg/dL (0.5-1.0); GFR FOR AFR.AMER. > 60 ML/MIN (>=60 (CALC)); GFR OTHER RACES > 60 ML/MIN (>=60 (CALC)); LIPASE 48 u/l (23-300); POTASSIUM 3.9 mmol/l (3.5-5.1); SGOT/AST 47 u/l (14-36); SODIUM 137 mmol/l (137-146); TOTAL PROTEIN 7.1 g/dL (6.3-8.2)
[2023-04-14 13:30] VITALS: BP 114/76
[2023-04-14 16:06] VITALS: BP 132/72
== END 2023-04-14 16:07 | disposition left against medical advice (07) ==
LOC: ED 11:57
PROVIDERS: Family Medicine
DX: R10.13 Epigastric pain (principal); R11.0 Nausea; I10 Essential (primary) hypertension; F17.200 Nicotine dependence, unspecified, uncomplicated; Z53.29 Procedure and treatment not carried out because of patient's decision for other reasons
CPT/HCPCS: Q9967

== ENCOUNTER 2023-10-06 13:52 | Emergency (ER) | payer MEDICARE ==
[~2023-10-06] VITALS: Ht 160 cm; Wt 63.5 kg
[~2023-10-06 13:52] MED LIST changes: +ATORVASTATIN CA40 MG PO; +HYDROCORTISONE PR; +LIDOCAINE52 RE
[2023-10-06 14:05] VITALS: BP 131/63
[2023-10-06 14:15] VITALS: BP 119/64
[2023-10-06] MEDS ORDERED: PREDNISONE20 MG PO (14:25)
[2023-10-06] MEDS ORDERED: methylPREDNISolone SODIUM SUCC 125 MG/2 ML SDV IM ONE (14:25)
[2023-10-06 14:30] VITALS: BP 116/63
[2023-10-06 14:37] VITALS: BP 116/63
== END 2023-10-06 14:44 | disposition home or self-care (01) ==
LOC: ED 13:52
DX: M19.042 Primary osteoarthritis, left hand (principal); M19.041 Primary osteoarthritis, right hand; I10 Essential (primary) hypertension; F17.200 Nicotine dependence, unspecified, uncomplicated

== ENCOUNTER 2023-12-12 17:36 | Emergency (ER) | payer MEDICARE ==
[~2023-12-12] VITALS: Ht 160 cm; Wt 65.0 kg
[~2023-12-12 17:36] MED LIST changes: +PREDNISONE20 MG PO
[2023-12-12] MEDS ORDERED: ONDANSETRON HCl 4 MG/2 ML SDV IV ONE (18:10)
[2023-12-12] MEDS ORDERED: MORPHINE SULFATE 4 MG/ML VIAL IV ONE (18:10)
[2023-12-12 18:31] VITALS: BP 122/62
[2023-12-12 18:31] LABS: BASO% 0.4 % (0-3); EOS% 2.4 % (0-8); HEMATOCRIT 42.9 % (37.0-47.0); HEMOGLOBIN 14.4 g/dl (12.0-16.0); IMMATURE GRANULOCYTES 0.1 % (0.0-5.0); LYMPH% 23.4 % (15-41); MEAN CELL VOLUME 91.5 fL CALC (80.0-100.0); MEAN CORPUSCULAR HGB 30.7 pG CALC (26.0-32.0); MEAN CORPUSCULAR HGB CONC 33.6 g/dL CAL (32.0-36.0); MONO% 6.8 % (2-13); NEUT# 8.8 thou/uL (2.00-7.15); NEUT% 66.9 % (42-76); RED BLOOD COUNT 4.69 mill/uL (4.20-5.60); RED CELL DISTRI WIDTH 12.7 % (11.5-15.5)
[2023-12-12 18:42] LABS: ALBUMIN 4.7 g/dL (3.2-5.0); CREATININE 0.9 mg/dL (0.5-1.0); POTASSIUM 3.4 mmol/l (3.5-5.1); TOTAL PROTEIN 7.4 g/dL (6.3-8.2)
[2023-12-12 18:43] LABS: BILIRUBIN, TOTAL 0.6 mg/dL (0.02-1.3)
[2023-12-12 19:00] VITALS: BP 131/74
[2023-12-12] MEDS ORDERED: SODIUM CHLORIDE 0.9% 1,000 ML IV STA (19:21)
[2023-12-12] MEDS ORDERED: DICYCLOMINE HCL 20 MG/2 ML VIAL IM ONE (19:25)
[2023-12-12] MEDS ORDERED: PROMETHAZINE HCL 25 MG/ML AMP IV ONE (19:25)
[2023-12-12] MEDS ORDERED: HYDROmorphone HCL 2 MG/AMP IV ONE (19:25)
[2023-12-12 19:30] VITALS: BP 106/48
[2023-12-12 21:57] LABS: URINE BILIRUBIN - DIPSTICK Negative (NEGATIVE); URINE BLOOD DIPSTICK Negative (NEGATIVE); URINE GLUCOSE - DIPSTICK Negative (NEGATIVE); URINE KETONE Negative (NEGATIVE); URINE LEUK ESTERASE Negative (NEGATIVE); URINE NITRITE - DIPSTICK Negative (Negative); URINE PH 5.5 (4.5-8.0); URINE PROTEIN - DIPSTICK Negative (NEG-TRACE); URINE SPECIFIC GRAVITY <=1.005; URINE UROBILINOGEN - DIPSTICK 0.2 E.U./dL (0.2)
[2023-12-12 21:59] LABS: URINE COLOR Yellow
[2023-12-12] MEDS ORDERED: MEDDOSEPAK PO (22:15)
[2023-12-12] MEDS ORDERED: ZITHROMAX TRI-500 MG PO (22:15)
[2023-12-12] MEDS ORDERED: AZITHROMYCIN 250 MG/TAB PO ONE (22:15)
[2023-12-12] MEDS ORDERED: predniSONE 20 MG/TAB PO ONE (22:15)
[2023-12-12 22:21] VITALS: BP 106/48
== END 2023-12-12 22:21 | disposition home or self-care (01) ==
LOC: ED 17:36
PROVIDERS: Family Medicine
DX: K52.9 Noninfective gastroenteritis and colitis, unspecified (principal); I10 Essential (primary) hypertension; F17.210 Nicotine dependence, cigarettes, uncomplicated
CPT/HCPCS: Q9967

== ENCOUNTER 2023-12-16 16:12 | Emergency (ER) | payer MEDICARE ==
[~2023-12-16] VITALS: Ht 160 cm; Wt 65.7 kg
[2023-12-16] VITALS (7 sets, daily range): BP systolic 128–161; BP diastolic 72–83
[~2023-12-16 16:12] MED LIST changes: +ZITHROMAX TRI-500 MG PO
[2023-12-16] MEDS ORDERED: ONDANSETRON HCl 4 MG/2 ML SDV IV STA (16:22)
[2023-12-16] MEDS ORDERED: PIPERACILLIN Sodium-Tazobactam 3.375 GM in SODIUM CHLORIDE 0.9% 100 ML IV STA (16:22)
[2023-12-16] MEDS ORDERED: HYDROmorphone HCL 2 MG/AMP IV STA (16:22)
[2023-12-16] MEDS ORDERED: DEXAMETHASONE SOD. PHOSPHATE 10 MG/ML VIAL IV ONE (16:35)
[2023-12-16 16:54] LABS: BASO% 0.3 % (0-3); EOS% 0.4 % (0-8); HEMATOCRIT 38.8 % (37.0-47.0); IMMATURE GRANULOCYTES 0.1 % (0.0-5.0); LYMPH% 33.2 % (15-41); MEAN CELL VOLUME 92.8 fL CALC (80.0-100.0); MEAN CORPUSCULAR HGB 31.1 pG CALC (26.0-32.0); MEAN CORPUSCULAR HGB CONC 33.5 g/dL CAL (32.0-36.0); MONO% 9.1 % (2-13); NEUT# 6.35 thou/uL (2.00-7.15); NEUT% 56.9 % (42-76); RED BLOOD COUNT 4.18 mill/uL (4.20-5.60); RED CELL DISTRI WIDTH 13.1 % (11.5-15.5)
[2023-12-16 17:11] LABS: ALBUMIN 4.4 g/dL (3.2-5.0); BILIRUBIN, TOTAL 0.6 mg/dL (0.02-1.3); CREATININE 0.7 mg/dL (0.5-1.0); POTASSIUM 4.3 mmol/l (3.5-5.1); TOTAL PROTEIN 6.7 g/dL (6.3-8.2)
[2023-12-16] MEDS ORDERED: PREDNISONE20 MG PO (18:15)
[2023-12-16] MEDS ORDERED: METRONIDAZOLE500 MG PO (18:15)
[2023-12-16] MEDS ORDERED: CIPROFLOXACN500 MG PO (18:15)
== END 2023-12-16 18:11 | disposition left against medical advice (07) ==
LOC: ED 16:12
PROVIDERS: Nurse Practitioner
DX: K57.32 Diverticulitis of large intestine without perforation or abscess without bleeding (principal); I10 Essential (primary) hypertension; F17.200 Nicotine dependence, unspecified, uncomplicated
CPT/HCPCS: Q9967

== ENCOUNTER 2023-12-21 11:25 | Emergency (ER) | payer MEDICARE ==
[~2023-12-21] VITALS: Ht 160 cm; Wt 62.5 kg
[2023-12-21] VITALS (8 sets, daily range): BP systolic 131–151; BP diastolic 59–83
[~2023-12-21 11:25] MED LIST changes: +METRONIDAZOLE500 MG PO
[2023-12-21] MEDS ORDERED: HYDROmorphone HCL 2 MG/AMP IV ONE ×2 (12:10→13:35)
[2023-12-21 12:14] LABS: BASO% 0.1 % (0-3); EOS% 0.6 % (0-8); HEMATOCRIT 43.1 % (37.0-47.0); IMMATURE GRANULOCYTES 0.3 % (0.0-5.0); LYMPH% 34.3 % (15-41); MEAN CELL VOLUME 94.9 fL CALC (80.0-100.0); MEAN CORPUSCULAR HGB 30.8 pG CALC (26.0-32.0); MEAN CORPUSCULAR HGB CONC 32.5 g/dL CAL (32.0-36.0); MONO% 7.7 % (2-13); NEUT# 7.22 thou/uL (2.00-7.15); RED BLOOD COUNT 4.54 mill/uL (4.20-5.60); RED CELL DISTRI WIDTH 13.3 % (11.5-15.5)
[2023-12-21] MEDS ORDERED: LACTATED RINGER'S 1,000 ML IV ONE (12:15)
[2023-12-21] MEDS ORDERED: ONDANSETRON HCl 4 MG/2 ML SDV IV ONE (12:15)
[2023-12-21 12:22] LABS: URINE BILIRUBIN - DIPSTICK Negative (NEGATIVE); URINE BLOOD DIPSTICK Negative (NEGATIVE); URINE GLUCOSE - DIPSTICK Negative (NEGATIVE); URINE KETONE Negative (NEGATIVE); URINE LEUK ESTERASE Negative (NEGATIVE); URINE NITRITE - DIPSTICK Negative (Negative); URINE PH 5.5 (4.5-8.0); URINE PROTEIN - DIPSTICK Negative (NEG-TRACE); URINE SPECIFIC GRAVITY 1.015; URINE UROBILINOGEN - DIPSTICK 0.2 E.U./dL (0.2)
[2023-12-21 12:38] LABS: ALBUMIN 4.2 g/dL (3.2-5.0); BILIRUBIN, TOTAL 0.5 mg/dL (0.02-1.3); CREATININE 0.8 mg/dL (0.5-1.0); POTASSIUM 3.6 mmol/l (3.5-5.1); TOTAL PROTEIN 6.8 g/dL (6.3-8.2)
[2023-12-21 12:44] LABS: URINE COLOR Yellow
[2023-12-21] MEDS ORDERED: CARAFATE1 GM PO (14:53)
[2023-12-21] MEDS ORDERED: HYDROCO/APAP1 TA9 PO (14:53)
[2023-12-21] MEDS ORDERED: ZOFRAN4 MG/TAB PO (14:53)
[2023-12-24] MEDS ORDERED: BC FAST PAI1 PO (07:48)
[2023-12-24] MEDS ORDERED: LYRICA100 MG PO (07:48)
== END 2023-12-21 15:12 | disposition home or self-care (01) ==
LOC: ED 11:25
PROVIDERS: Emergency Medicine
DX: R19.7 Diarrhea, unspecified (principal); R10.31 Right lower quadrant pain; R10.32 Left lower quadrant pain; I10 Essential (primary) hypertension; K58.9 Irritable bowel syndrome, unspecified; F17.200 Nicotine dependence, unspecified, uncomplicated

== ENCOUNTER 2023-12-26 07:23 | Day surgery (SDC) | payer MEDICARE ==
[~2023-12-26] VITALS: Ht 160 cm; Wt 61.2 kg
[~2023-12-26 07:23] MED LIST changes: +BC FAST PAI1 PO; +LYRICA100 MG PO
[2023-12-26] MEDS ORDERED: FAMOTIDINE 10MG/ML 2ML SDV IV ONE (07:51)
[2023-12-26] MEDS ORDERED: LACTATED RINGER'S 1,000 ML IV ONE (07:51)
[2023-12-26] MEDS ORDERED: ONDANSETRON HCl 4 MG/2 ML SDV ONE (08:10)
[2023-12-26 10:12] VITALS: BP 124/68
[2023-12-26] MEDS ORDERED: GLYCOPYRROLATE 0.2 MG/ML IV ONE (11:19)
[2023-12-26] MEDS ORDERED: PROPOFOL 200 MG/20 ML VIAL IV ONE (11:19)
== END 2023-12-26 10:12 | disposition home or self-care (01) ==
LOC: ORM 07:23
PROVIDERS: ATTEND Surgery
PROC: 0DBH8ZX Excision of Cecum, Via Natural or Artificial Opening Endoscopic, Diagnostic (ICD-10-PCS; principal; 2023-12-26)
PROC: 0DBE8ZX Excision of Large Intestine, Via Natural or Artificial Opening Endoscopic, Diagnostic (ICD-10-PCS; 2023-12-26)
PROC: 0DBB8ZX Excision of Ileum, Via Natural or Artificial Opening Endoscopic, Diagnostic (ICD-10-PCS; 2023-12-26)
PROC: 0DB98ZX Excision of Duodenum, Via Natural or Artificial Opening Endoscopic, Diagnostic (ICD-10-PCS; 2023-12-26)
PROC: 0DB68ZX Excision of Stomach, Via Natural or Artificial Opening Endoscopic, Diagnostic (ICD-10-PCS; 2023-12-26)
PROC: 0DB58ZX Excision of Esophagus, Via Natural or Artificial Opening Endoscopic, Diagnostic (ICD-10-PCS; 2023-12-26)
DX: K57.31 Diverticulosis of large intestine without perforation or abscess with bleeding (principal); K63.3 Ulcer of intestine; K64.4 Residual hemorrhoidal skin tags; K29.61 Other gastritis with bleeding; K31.89 Other diseases of stomach and duodenum; K44.9 Diaphragmatic hernia without obstruction or gangrene; I10 Essential (primary) hypertension; F17.210 Nicotine dependence, cigarettes, uncomplicated; Z90.49 Acquired absence of other specified parts of digestive tract

== ENCOUNTER 2024-01-05 16:52 | Emergency (ER) | payer MEDICARE ==
[~2024-01-05] VITALS: Ht 160 cm; Wt 65.0 kg
[2024-01-05] VITALS (7 sets, daily range): BP systolic 118–139; BP diastolic 60–78
[2024-01-05] MEDS ORDERED: SODIUM CHLORIDE 0.9% 1,000 ML IV ONE (17:15)
[2024-01-05] MEDS ORDERED: HYDROmorphone HCL 2 MG/AMP IV ONE ×2 (17:15→19:00)
[2024-01-05] MEDS ORDERED: ONDANSETRON HCl 4 MG/2 ML SDV IV ONE (17:15)
[2024-01-05 17:46] LABS: BASO% 0.8 % (0-3); EOS% 3.6 % (0-8); HEMATOCRIT 40.7 % (37.0-47.0); HEMOGLOBIN 13.2 g/dl (12.0-16.0); IMMATURE GRANULOCYTES 0.1 % (0.0-5.0); LYMPH% 38.9 % (15-41); MEAN CELL VOLUME 94.4 fL CALC (80.0-100.0); MEAN CORPUSCULAR HGB 30.6 pG CALC (26.0-32.0); MEAN CORPUSCULAR HGB CONC 32.4 g/dL CAL (32.0-36.0); NEUT# 4.15 thou/uL (2.00-7.15); NEUT% 47.6 % (42-76); RED BLOOD COUNT 4.31 mill/uL (4.20-5.60); RED CELL DISTRI WIDTH 13.1 % (11.5-15.5)
[2024-01-05 17:57] LABS: BILIRUBIN, TOTAL 0.4 mg/dL (0.02-1.3); CREATININE 0.9 mg/dL (0.5-1.0); TOTAL PROTEIN 6.2 g/dL (6.3-8.2)
[2024-01-05] MEDS ORDERED: DIATRIZOATE MEGLUMINE & SODIUM 30 ML/BTL BTL PO ONE (18:05)
[2024-01-05 18:12] LABS: URINE BILIRUBIN - DIPSTICK Negative (NEGATIVE); URINE BLOOD DIPSTICK Negative (NEGATIVE); URINE COLOR Yellow; URINE GLUCOSE - DIPSTICK Negative (NEGATIVE); URINE KETONE Negative (NEGATIVE); URINE LEUK ESTERASE Negative (NEGATIVE); URINE NITRITE - DIPSTICK Negative (Negative); URINE PH 5.5 (4.5-8.0); URINE PROTEIN - DIPSTICK Negative (NEG-TRACE); URINE UROBILINOGEN - DIPSTICK 0.2 E.U./dL (0.2)
[2024-01-05] MEDS ORDERED: METRONIDAZOLE500 MG PO (21:11)
[2024-01-05] MEDS ORDERED: metroNIDAZOLE 500 MG/TAB PO ONE (21:15)
== END 2024-01-05 21:25 | disposition home or self-care (01) ==
LOC: ED 16:52
PROVIDERS: Family Medicine
DX: N82.4 Other female intestinal-genital tract fistulae (principal); N76.0 Acute vaginitis; I10 Essential (primary) hypertension; F17.210 Nicotine dependence, cigarettes, uncomplicated; Z90.710 Acquired absence of both cervix and uterus
CPT/HCPCS: Q9967